=== PATIENT | male | born 1945 | race Two or more races ===

== ENCOUNTER 2020-12-05 21:52 | Inpatient (IN) | payer MEDICAID, OTHER ==
[~2020-12-05] VITALS: Ht 165.1 cm; Wt 83.5 kg
[2020-12-05] MEDS ORDERED: IPRATROPIUM BROMIDE (0.02%) 0.5MG/2.5ML NEB HHN STA (22:17)
[2020-12-05] MEDS ORDERED: DEXAMETHASONE 10 MG/ML VIAL IV ONE (22:30)
[2020-12-05 22:44] LABS: HEMATOCRIT. 42.7 % (42.0-52.0); HEMOGLOBIN. 13.9 g/dL (14.0-18.0); MEAN CORPUSCULAR HEMOGLOBIN 32.2 pg (28.0-32.0); MEAN CORPUSCULAR VOLUME 98.9 fL (80.0-94.0); MEAN PLATELET VOLUME 10.2 fl (7.4-10.4); PLATELET 193 x1000/uL (130-400); RED BLOOD CELL COUNT 4.32 mill/uL (4.7-6.1); RED CELL DISTRIBUTION WIDTH 13.9 % (11.6-14.6)
[2020-12-05 22:46] LABS: CHLORIDE 98 mEq/L (98-107)
[2020-12-05 22:53] LABS: INR 1.1; PROTHROMBIN TIME 11.1 sec (9.6-11.0)
[2020-12-05 22:54] LABS: CREATINE KINASE 785 IU/L (39-308)
[2020-12-05 22:56] LABS: FIBRINOGEN > 850 mg/dL (200-400)
[2020-12-05 23:02] LABS: PLATELET ESTIMATE NORMAL
[2020-12-05] MEDS: ALBUTEROL (0.083%) 2.5MG/3ML NEB HHN SCH (23:30)
[2020-12-05 23:33] LABS: BG BASE EXCESS -10.5 mmol/L (-2.0-2.0); BG CARBOXYHEMOGLOBIN 0.5 % (0.5-1.5); BG DEOXYHEMOGLOBIN 6.1 % (0.0-5.0); BG FRACTION INSPIRED OXYGEN 100; BG HCO3 ACT 13.6 mmol/L (22.0-26.0); BG METHEMOGLOBIN 0.3 % (0.0-1.5); BG OXYGEN SATURATION 93.9 % (92.0-98.5); BG OXYHEMOGLOBIN 93.1 % (94.0-97.0); BG PCO2 26.2 mmHg (35.0-45.0); BG PH 7.332 (7.350-7.450); BG PO2 79.2 mmHg (75.0-100.0); BG SAMPLE SITE RIGHT BRACHIAL; BG TOTAL HEMOGLOBIN 14.2 g/dL (12.0-18.0); BG VENT MODE MASK - BIPAP
[2020-12-05 23:47] LABS: CLARITY URINE CLEAR (CLEAR); COLOR URINE ORANGE (YELLOW); KETONES URINE 1+ (NEGATIVE); LEUKOCYTE ESTERASE URINE NEGATIVE (NEGATIVE); NITRITE URINE NEGATIVE (NEGATIVE); OCCULT BLOOD URINE 1+ (NEGATIVE); PROTEIN URINE 1+ (NEGATIVE); SPECIFIC GRAVITY URINE 1.028 (1.005-1.030); UROBILINOGEN URINE 0.2 E.U./dL (0.2-1.0)
[2020-12-06] MEDS ORDERED: PIPERACILLIN/TAZOBACTAM 3.375GM/50ML PREMIX IV ONE
[2020-12-06] MEDS ORDERED: INSULIN REGULAR (DRIP) 100 UNITS in SODIUM CHLORIDE 0.9% 99 ML IV SCH ×2 (00:45→01:00)
[2020-12-06] MEDS ORDERED: INSULIN REGULAR (HUMULIN R) 300UNITS/3ML VIAL IV NR (00:45)
[2020-12-06] MEDS ORDERED: PIPERACILLIN/TAZ 3.375G PREMIX 50 ML IV NR (00:45)
[2020-12-06] MEDS ORDERED: ENOXAPARIN 80MG/0.8ML SYR SUBCUT NR (00:45)
[2020-12-06] MEDS ORDERED: SODIUM CHLORIDE 0.9% 500 ML IV NR (00:45)
[2020-12-06] MEDS: ALBUTEROL (0.083%) 2.5MG/3ML NEB HHN SCH ×2 (01:00→01:34)
[2020-12-06] MEDS ORDERED: VANCOMYCIN 1 G PREMIX 200 ML IV NR (01:00)
[2020-12-06] MEDS ORDERED: LORAZEPAM 2MG/ML CPJ IV ONE ×2 (01:30→07:45)
[2020-12-06] MEDS: PANTOPRAZOLE SODIUM 40 MG/VIAL IV SCH ×2 (02:15→09:50)
[2020-12-06] MEDS ORDERED: ETOMIDATE 2MG/ML 10ML VIAL IV ONE ×2 (02:15→15:00)
[2020-12-06] MEDS ORDERED: VECURONIUM BROMIDE 10 MG/VIAL IV ONE ×2 (02:15→15:00)
[2020-12-06] MEDS ORDERED: PROPOFOL 10MG/ML 100ML 100 ML IV SCH (02:15)
[2020-12-06 03:20] LABS: BG BASE EXCESS -14.1 mmol/L (-2.0-2.0); BG CARBOXYHEMOGLOBIN 0.6 % (0.5-1.5); BG DEOXYHEMOGLOBIN 14.6 % (0.0-5.0); BG FRACTION INSPIRED OXYGEN 100; BG METHEMOGLOBIN 0.4 % (0.0-1.5); BG OXYGEN SATURATION 85.3 % (92.0-98.5); BG OXYHEMOGLOBIN 84.4 % (94.0-97.0); BG PCO2 53.5 mmHg (35.0-45.0); BG PH 7.093 (7.350-7.450); BG SAMPLE SITE RIGHT RADIAL; BG TOTAL HEMOGLOBIN 16.2 g/dL (12.0-18.0); BG VENT MODE VENT - AC
[2020-12-06] MEDS ORDERED: FENTANYL CITRATE/PF 50MCG/ML 2ML VIAL IV ONE (04:00)
[2020-12-06] MEDS ORDERED: SODIUM BICARBONATE 8.4% 1 MEQ/ML 50ML SYR IV NR (05:00)
[2020-12-06] MEDS ORDERED: NOREPINEPHRINE 8MG/250ML PMX 250 ML IV PRN (08:15)
[2020-12-06] MEDS ORDERED: MIDAZOLAM 100MG/100ML PMX 100 ML IV PRN (08:15)
[2020-12-06] MEDS ORDERED: ONDANSETRON HCL 4MG/2ML INJ IV PRN (08:30)
[2020-12-06] MEDS ORDERED: NOREPINEPHRINE 8 MG in DEXTROSE 5% WATER 250 ML IV PRN (08:30)
[2020-12-06] MEDS ORDERED: MIDAZOLAM HCL 100 MG in DEXT 5% WATER 100 ML IV PRN (08:30)
[2020-12-06] MEDS ORDERED: SODIUM BICARBONATE 4% (2.4MEQ) 5ML VIAL IV ONE (08:35)
[2020-12-06] MEDS ORDERED: LIDOCAINE HCL 1% 20ML VIAL (Pyxis) INJ ONE (08:36)
[2020-12-06] MEDS: AZITHROMYCIN 250 MG in DEXT 5% WATER 250 ML IV SCH (09:29)
[2020-12-06 09:36] LABS: BG BASE EXCESS -3.9 mmol/L (-2.0-2.0); BG CARBOXYHEMOGLOBIN 0.1 % (0.5-1.5); BG HCO3 ACT 21.1 mmol/L (22.0-26.0); BG METHEMOGLOBIN 0.1 % (0.0-1.5); BG OXYHEMOGLOBIN 89.8 % (94.0-97.0); BG PCO2 38.5 mmHg (35.0-45.0); BG PH 7.356 (7.350-7.450); BG PO2 59.5 mmHg (75.0-100.0); BG SAMPLE SITE LEFT RADIAL; BG TOTAL HEMOGLOBIN 15.6 g/dL (12.0-18.0); BG VENT MODE VENT - AC
[2020-12-06] MEDS: SODIUM CHLORIDE 0.9% 1,000 ML IV SCH ×2 (09:50→22:20)
[2020-12-06] MEDS: ENOXAPARIN 40MG/0.4ML SYR SUBCUT SCH (09:50)
[2020-12-06] MEDS: CEFTRIAXONE 1 G PREMIX 50 ML IV SCH (09:50)
[2020-12-06] MEDS ORDERED: INSULIN GLARGINE UD 100 UNITS/ML SYR SUBCUT SCH (10:00)
[2020-12-06] MEDS: BLOOD SUGAR DIAGNOSTIC STRIP TEST SCH ×4 (10:30→21:28)
[2020-12-06] MEDS: DEXAMETHASONE 6MG TABLET PO SCH (11:06)
[2020-12-06] MEDS: INSULIN LISPRO 100 UNITS/ML SUBCUT SCH ×3 (13:21→21:33)
[2020-12-06] MEDS ORDERED: INSULIN GLARGINE UD 100 UNITS/ML SYR SUBCUT NR (18:00)
[2020-12-06] MEDS: INSULIN GLARGINE UD 100 UNITS/ML SYR SUBCUT SCH (22:00)
[2020-12-07] VITALS (8 sets, daily range): BP systolic 132–152; BP diastolic 59–70
[2020-12-07 05:18] LABS: HEMATOCRIT. 39.1 % (42.0-52.0); HEMOGLOBIN. 13.1 g/dL (14.0-18.0); MEAN CORPUSCULAR HEMOGLOBIN 32.4 pg (28.0-32.0); MEAN CORPUSCULAR VOLUME 96.5 fL (80.0-94.0); MEAN PLATELET VOLUME 9.8 fl (7.4-10.4); PLATELET 234 x1000/uL (130-400); RED BLOOD CELL COUNT 4.05 mill/uL (4.7-6.1); RED CELL DISTRIBUTION WIDTH 13.6 % (11.6-14.6)
[2020-12-07] MEDS: BLOOD SUGAR DIAGNOSTIC STRIP TEST SCH ×5 (06:32→21:00)
[2020-12-07] MEDS: INSULIN LISPRO 100 UNITS/ML SUBCUT SCH ×5 (06:55→21:00)
[2020-12-07 07:58] LABS: BG BASE EXCESS -4.1 mmol/L (-2.0-2.0); BG CARBOXYHEMOGLOBIN 0.3 % (0.5-1.5); BG DEOXYHEMOGLOBIN 3.9 % (0.0-5.0); BG FRACTION INSPIRED OXYGEN 100; BG HCO3 ACT 19.8 mmol/L (22.0-26.0); BG METHEMOGLOBIN 0.1 % (0.0-1.5); BG OXYGEN SATURATION 96.1 % (92.0-98.5); BG OXYHEMOGLOBIN 95.7 % (94.0-97.0); BG PCO2 32.4 mmHg (35.0-45.0); BG PH 7.404 (7.350-7.450); BG PO2 85.5 mmHg (75.0-100.0); BG SAMPLE SITE RIGHT RADIAL; BG TOTAL HEMOGLOBIN 11.7 g/dL (12.0-18.0); BG VENT MODE VENT - AC
[2020-12-07] MEDS: PANTOPRAZOLE SODIUM 40 MG/VIAL IV SCH (08:51)
[2020-12-07] MEDS: CEFTRIAXONE 1 G PREMIX 50 ML IV SCH (08:51)
[2020-12-07] MEDS: ENOXAPARIN 40MG/0.4ML SYR SUBCUT SCH (08:52)
[2020-12-07] MEDS: DEXAMETHASONE 6MG TABLET PO SCH (09:19)
[2020-12-07] MEDS: AZITHROMYCIN 250 MG in DEXT 5% WATER 250 ML IV SCH (09:20)
[2020-12-07 10:34] LABS: PLATELET ESTIMATE NORMAL
[2020-12-07] MEDS: INSULIN GLARGINE UD 100 UNITS/ML SYR SUBCUT SCH (11:27)
[2020-12-07] MEDS: SODIUM CHLORIDE 0.9% 1,000 ML IV SCH (11:37)
[2020-12-07] MEDS ORDERED: VANCOMYCIN 1 G PREMIX 200 ML IV SCH (14:00)
[2020-12-07] MEDS ORDERED: IPRATROPIUM/ALBUTEROL 0.5-3(2.5)MG/3ML NEB HHN PRN (19:15)
[2020-12-07] MEDS: IPRATROPIUM/ALBUTEROL 0.5-3(2.5)MG/3ML NEB HHN SCH (21:09)
[2020-12-07] MEDS ORDERED: INSULIN GLARGINE UD 100 UNITS/ML SYR SUBCUT SCH (22:00)
[2020-12-08] VITALS (89 sets, daily range): BP systolic 95–162; BP diastolic 52–78
[2020-12-08] MEDS: SODIUM CHLORIDE 0.9% 1,000 ML IV SCH ×2 (01:32→14:13)
[2020-12-08] MEDS: FENTANYL CITRATE/PF 2,500 MCG in SODIUM CHLORIDE 0.9% 200 ML IV PRN ×2 (01:35→21:24)
[2020-12-08] MEDS: IPRATROPIUM/ALBUTEROL 0.5-3(2.5)MG/3ML NEB HHN SCH ×5 (02:30→20:52)
[2020-12-08 06:31] LABS: HEMATOCRIT. 35.7 % (42.0-52.0); HEMOGLOBIN. 11.8 g/dL (14.0-18.0); MEAN CORPUSCULAR HEMOGLOBIN 32.5 pg (28.0-32.0); MEAN CORPUSCULAR VOLUME 98.4 fL (80.0-94.0); MEAN PLATELET VOLUME 10.4 fl (7.4-10.4); PLATELET 146 x1000/uL (130-400); RED BLOOD CELL COUNT 3.62 mill/uL (4.7-6.1)
[2020-12-08 07:03] LABS: BG BASE EXCESS -9.1 mmol/L (-2.0-2.0); BG CARBOXYHEMOGLOBIN 0.3 % (0.5-1.5); BG DEOXYHEMOGLOBIN 1.4 % (0.0-5.0); BG FRACTION INSPIRED OXYGEN 90; BG HCO3 ACT 16.2 mmol/L (22.0-26.0); BG METHEMOGLOBIN 0.3 % (0.0-1.5); BG OXYGEN SATURATION 98.6 % (92.0-98.5); BG PCO2 33.1 mmHg (35.0-45.0); BG PH 7.307 (7.350-7.450); BG PO2 144.3 mmHg (75.0-100.0); BG SAMPLE SITE RIGHT RADIAL; BG TOTAL HEMOGLOBIN 12.3 g/dL (12.0-18.0); BG VENT MODE VENT - AC
[2020-12-08] MEDS: CEFTRIAXONE 1,000 MG in DEXTROSE 5% WATER 50 ML IV SCH (09:28)
[2020-12-08] MEDS: ENOXAPARIN 40MG/0.4ML SYR SUBCUT SCH (09:29)
[2020-12-08] MEDS: DEXAMETHASONE 10 MG/ML VIAL IV SCH (09:29)
[2020-12-08] MEDS: AZITHROMYCIN 250 MG in DEXT 5% WATER 250 ML IV SCH (11:04)
[2020-12-08] MEDS: INSULIN GLARGINE UD 100 UNITS/ML SYR SUBCUT SCH ×2 (11:09→21:25)
[2020-12-08] MEDS: INSULIN LISPRO 100 UNITS/ML SUBCUT SCH ×5 (11:43→23:30)
[2020-12-08] MEDS: VANCOMYCIN 750 MG PREMIX 150 ML IV SCH (11:44)
[2020-12-08] MEDS ORDERED: INSULIN LISPRO 100 UNITS/ML SUBCUT NR (12:00)
[2020-12-08] MEDS: BLOOD SUGAR DIAGNOSTIC STRIP TEST SCH ×3 (12:00→23:19)
[2020-12-08 15:45] LABS: PLATELET ESTIMATE NORMAL
[2020-12-08] MEDS: MIDAZOLAM 100MG/100ML PREMIX IV PRN (17:22)
[2020-12-09] VITALS (88 sets, daily range): BP systolic 97–170; BP diastolic 59–102
[2020-12-09] MEDS: IPRATROPIUM/ALBUTEROL 0.5-3(2.5)MG/3ML NEB HHN SCH ×5 (00:21→20:20)
[2020-12-09] MEDS: VANCOMYCIN 750 MG PREMIX 150 ML IV SCH ×2 (04:00→22:07)
[2020-12-09] MEDS: SODIUM CHLORIDE 0.9% 1,000 ML IV SCH ×2 (04:01→17:29)
[2020-12-09] MEDS: BLOOD SUGAR DIAGNOSTIC STRIP TEST SCH ×4 (05:21→23:29)
[2020-12-09] MEDS: MIDAZOLAM 100MG/100ML PREMIX IV PRN ×2 (05:44→17:30)
[2020-12-09] MEDS: INSULIN LISPRO 100 UNITS/ML SUBCUT SCH ×8 (06:03→23:29)
[2020-12-09 06:20] LABS: HEMATOCRIT. 33.6 % (42.0-52.0); HEMOGLOBIN. 11.2 g/dL (14.0-18.0); MEAN CORPUSCULAR HEMOGLOBIN 32.2 pg (28.0-32.0); MEAN CORPUSCULAR VOLUME 96.9 fL (80.0-94.0); MEAN PLATELET VOLUME 10.3 fl (7.4-10.4); PLATELET 128 x1000/uL (130-400); RED BLOOD CELL COUNT 3.47 mill/uL (4.7-6.1); RED CELL DISTRIBUTION WIDTH 13.8 % (11.6-14.6)
[2020-12-09] MEDS ORDERED: INSULIN LISPRO 100 UNITS/ML SUBCUT NR (08:00)
[2020-12-09] MEDS: DEXAMETHASONE 10 MG/ML VIAL IV SCH (08:27)
[2020-12-09] MEDS: CEFTRIAXONE 1,000 MG in DEXTROSE 5% WATER 50 ML IV SCH (08:28)
[2020-12-09 08:37] LABS: BG BASE EXCESS -8.2 mmol/L (-2.0-2.0); BG DEOXYHEMOGLOBIN 2.6 % (0.0-5.0); BG FRACTION INSPIRED OXYGEN 70; BG HCO3 ACT 17.1 mmol/L (22.0-26.0); BG METHEMOGLOBIN 0.3 % (0.0-1.5); BG OXYGEN SATURATION 97.4 % (92.0-98.5); BG OXYHEMOGLOBIN 97.1 % (94.0-97.0); BG PCO2 34.4 mmHg (35.0-45.0); BG PH 7.314 (7.350-7.450); BG PO2 101.9 mmHg (75.0-100.0); BG SAMPLE SITE RIGHT RADIAL; BG VENT MODE VENT - AC
[2020-12-09] MEDS: ENOXAPARIN 40MG/0.4ML SYR SUBCUT SCH (08:38)
[2020-12-09 09:22] LABS: PLATELET ESTIMATE SLIGHTLY DECREASED
[2020-12-09] MEDS: INSULIN GLARGINE UD 100 UNITS/ML SYR SUBCUT SCH ×2 (10:03→22:00)
[2020-12-09] MEDS: METOCLOPRAMIDE HCL 10MG/2ML VIAL IV SCH ×3 (11:30→23:26)
[2020-12-09] MEDS: AZITHROMYCIN 250 MG in DEXT 5% WATER 250 ML IV SCH (11:30)
[2020-12-09] MEDS: LACTULOSE 20G/30ML UDC PO PRN (11:30)
[2020-12-09] MEDS ORDERED: PHENYLEPHRINE 100 MG in DEXT 5% WATER 240 ML IV PRN (13:30)
[2020-12-09] MEDS: FENTANYL CITRATE/PF 2,500 MCG in SODIUM CHLORIDE 0.9% 200 ML IV PRN (15:24)
[2020-12-09] MEDS: DOCUSATE SODIUM SUGAR FREE 100MG/10ML UDC NG SCH (17:29)
[2020-12-10] VITALS (86 sets, daily range): BP systolic 110–157; BP diastolic 55–86
[2020-12-10] MEDS: IPRATROPIUM/ALBUTEROL 0.5-3(2.5)MG/3ML NEB HHN SCH ×5 (02:09→20:45)
[2020-12-10] MEDS: SODIUM CHLORIDE 0.9% 1,000 ML IV SCH (04:35)
[2020-12-10] MEDS: INSULIN LISPRO 100 UNITS/ML SUBCUT SCH ×4 (05:10→18:06)
[2020-12-10] MEDS: METOCLOPRAMIDE HCL 10MG/2ML VIAL IV SCH ×3 (05:10→18:06)
[2020-12-10] MEDS: BLOOD SUGAR DIAGNOSTIC STRIP TEST SCH ×3 (05:10→18:03)
[2020-12-10 05:49] LABS: HEMOGLOBIN. 11.4 g/dL (14.0-18.0); MEAN CORPUSCULAR HEMOGLOBIN 32.6 pg (28.0-32.0); MEAN CORPUSCULAR VOLUME 97.1 fL (80.0-94.0); MEAN PLATELET VOLUME 10.7 fl (7.4-10.4); PLATELET 114 x1000/uL (130-400); RED CELL DISTRIBUTION WIDTH 13.8 % (11.6-14.6)
[2020-12-10 05:57] LABS: CHLORIDE 123 mEq/L (98-107)
[2020-12-10] MEDS ORDERED: MIDAZOLAM HCL 100 MG in SODIUM CHLORIDE 0.9% 100 ML IV PRN (06:00)
[2020-12-10] MEDS: FENTANYL CITRATE/PF 2,500 MCG in SODIUM CHLORIDE 0.9% 200 ML IV PRN ×2 (07:05→22:46)
[2020-12-10 07:44] LABS: PLATELET ESTIMATE DECREASED
[2020-12-10] MEDS: DEXAMETHASONE 10 MG/ML VIAL IV SCH (08:26)
[2020-12-10] MEDS: ENOXAPARIN 40MG/0.4ML SYR SUBCUT SCH (08:26)
[2020-12-10] MEDS: DOCUSATE SODIUM SUGAR FREE 100MG/10ML UDC NG SCH ×2 (08:26→18:06)
[2020-12-10 08:40] LABS: BG BASE EXCESS -5.6 mmol/L (-2.0-2.0); BG CARBOXYHEMOGLOBIN 0.2 % (0.5-1.5); BG DEOXYHEMOGLOBIN 0.8 % (0.0-5.0); BG FRACTION INSPIRED OXYGEN 90; BG HCO3 ACT 19.4 mmol/L (22.0-26.0); BG METHEMOGLOBIN 0.5 % (0.0-1.5); BG OXYGEN SATURATION 99.2 % (92.0-98.5); BG OXYHEMOGLOBIN 98.5 % (94.0-97.0); BG PCO2 36.2 mmHg (35.0-45.0); BG PH 7.347 (7.350-7.450); BG PO2 293.3 mmHg (75.0-100.0); BG SAMPLE SITE RIGHT RADIAL; BG TOTAL HEMOGLOBIN 12.5 g/dL (12.0-18.0); BG VENT MODE VENT - AC
[2020-12-10] MEDS: AZITHROMYCIN 250 MG in DEXT 5% WATER 250 ML IV SCH (08:59)
[2020-12-10] MEDS ORDERED: CEFTRIAXONE 2 G PREMIX 50 ML IV SCH (09:00)
[2020-12-10] MEDS: CEFTRIAXONE 2 G in DEXTROSE 5% WATER 50 ML IV SCH (09:53)
[2020-12-10] MEDS: INSULIN GLARGINE UD 100 UNITS/ML SYR SUBCUT SCH ×2 (10:34→22:52)
[2020-12-11] VITALS (95 sets, daily range): BP systolic 120–183; BP diastolic 57–100
[2020-12-11] MEDS: INSULIN LISPRO 100 UNITS/ML SUBCUT SCH ×4 (01:55→17:34)
[2020-12-11] MEDS: IPRATROPIUM/ALBUTEROL 0.5-3(2.5)MG/3ML NEB HHN SCH ×5 (02:21→21:15)
[2020-12-11] MEDS: BLOOD SUGAR DIAGNOSTIC STRIP TEST SCH ×4 (06:00→18:03)
[2020-12-11] MEDS: METOCLOPRAMIDE HCL 10MG/2ML VIAL IV SCH ×4 (06:00→17:34)
[2020-12-11 06:25] LABS: CHLORIDE 124 mEq/L (98-107)
[2020-12-11 06:28] LABS: HEMATOCRIT. 34.2 % (42.0-52.0); HEMOGLOBIN. 11.4 g/dL (14.0-18.0); MEAN CORPUSCULAR HEMOGLOBIN 32.3 pg (28.0-32.0); MEAN CORPUSCULAR VOLUME 96.8 fL (80.0-94.0); MEAN PLATELET VOLUME 11.1 fl (7.4-10.4); PLATELET 135 x1000/uL (130-400); RED BLOOD CELL COUNT 3.53 mill/uL (4.7-6.1); RED CELL DISTRIBUTION WIDTH 14.1 % (11.6-14.6)
[2020-12-11 07:36] LABS: BG BASE EXCESS -1.8 mmol/L (-2.0-2.0); BG CARBOXYHEMOGLOBIN 0.3 % (0.5-1.5); BG DEOXYHEMOGLOBIN 1.1 % (0.0-5.0); BG FRACTION INSPIRED OXYGEN 70; BG HCO3 ACT 22.4 mmol/L (22.0-26.0); BG METHEMOGLOBIN 0.5 % (0.0-1.5); BG OXYGEN SATURATION 98.9 % (92.0-98.5); BG OXYHEMOGLOBIN 98.1 % (94.0-97.0); BG PH 7.411 (7.350-7.450); BG PO2 262.4 mmHg (75.0-100.0); BG SAMPLE SITE RIGHT RADIAL; BG TOTAL HEMOGLOBIN 11.1 g/dL (12.0-18.0); BG VENT MODE VENT - AC
[2020-12-11] MEDS: MIDAZOLAM 100MG/100ML PREMIX IV PRN ×2 (08:08→21:45)
[2020-12-11] MEDS: DOCUSATE SODIUM SUGAR FREE 100MG/10ML UDC NG SCH ×2 (08:37→17:33)
[2020-12-11] MEDS: DEXAMETHASONE 10 MG/ML VIAL IV SCH (08:37)
[2020-12-11] MEDS: CEFTRIAXONE 2 G in DEXTROSE 5% WATER 50 ML IV SCH (08:37)
[2020-12-11] MEDS: ENOXAPARIN 40MG/0.4ML SYR SUBCUT SCH (08:37)
[2020-12-11] MEDS: INSULIN GLARGINE UD 100 UNITS/ML SYR SUBCUT SCH ×2 (10:16→21:27)
[2020-12-11] MEDS: FENTANYL CITRATE/PF 2,500 MCG in SODIUM CHLORIDE 0.9% 200 ML IV PRN (15:30)
[2020-12-12] VITALS (86 sets, daily range): BP systolic 112–154; BP diastolic 58–82
[2020-12-12 00:06] LABS: PLATELET ESTIMATE NORMAL
[2020-12-12] MEDS: BLOOD SUGAR DIAGNOSTIC STRIP TEST SCH ×4 (00:08→18:00)
[2020-12-12] MEDS: INSULIN LISPRO 100 UNITS/ML SUBCUT SCH ×4 (00:22→18:00)
[2020-12-12] MEDS: METOCLOPRAMIDE HCL 10MG/2ML VIAL IV SCH ×4 (00:23→17:59)
[2020-12-12] MEDS: IPRATROPIUM/ALBUTEROL 0.5-3(2.5)MG/3ML NEB HHN SCH ×4 (03:11→20:05)
[2020-12-12] MEDS: FENTANYL CITRATE/PF 2,500 MCG in SODIUM CHLORIDE 0.9% 200 ML IV PRN ×3 (04:14→23:09)
[2020-12-12 06:41] LABS: CHLORIDE 125 mEq/L (98-107)
[2020-12-12 06:57] LABS: HEMATOCRIT. 35.1 % (42.0-52.0); HEMOGLOBIN. 11.6 g/dL (14.0-18.0); MEAN CORPUSCULAR HEMOGLOBIN 32.2 pg (28.0-32.0); MEAN CORPUSCULAR VOLUME 97.3 fL (80.0-94.0); RED CELL DISTRIBUTION WIDTH 14.1 % (11.6-14.6)
[2020-12-12] MEDS: MIDAZOLAM 100MG/100ML PREMIX IV PRN ×2 (07:09→16:52)
[2020-12-12] MEDS: ENOXAPARIN 40MG/0.4ML SYR SUBCUT SCH (09:00)
[2020-12-12] MEDS: DOCUSATE SODIUM SUGAR FREE 100MG/10ML UDC NG SCH ×2 (09:25→17:59)
[2020-12-12] MEDS: DEXAMETHASONE 10 MG/ML VIAL IV SCH (09:25)
[2020-12-12] MEDS: CEFTRIAXONE 2 G in DEXTROSE 5% WATER 50 ML IV SCH (09:25)
[2020-12-12 09:34] LABS: PLATELET ESTIMATE NORMAL
[2020-12-12 09:37] LABS: PLATELET 179 x1000/uL (130-400)
[2020-12-12 09:46] LABS: BG BASE EXCESS -0.5 mmol/L (-2.0-2.0); BG CARBOXYHEMOGLOBIN 0.8 % (0.5-1.5); BG DEOXYHEMOGLOBIN 5.4 % (0.0-5.0); BG FRACTION INSPIRED OXYGEN 50; BG HCO3 ACT 24.2 mmol/L (22.0-26.0); BG METHEMOGLOBIN 0.4 % (0.0-1.5); BG OXYGEN SATURATION 94.5 % (92.0-98.5); BG OXYHEMOGLOBIN 93.4 % (94.0-97.0); BG PCO2 40.1 mmHg (35.0-45.0); BG PH 7.399 (7.350-7.450); BG PO2 71.4 mmHg (75.0-100.0); BG SAMPLE SITE RIGHT RADIAL; BG TOTAL HEMOGLOBIN 12.7 g/dL (12.0-18.0); BG VENT MODE VENT - AC
[2020-12-12] MEDS ORDERED: INSULIN GLARGINE UD 100 UNITS/ML SYR SUBCUT SCH (10:00)
[2020-12-12] MEDS: DEXTROSE 50% WATER 50ML SYRINGE IV PRN (11:49)
[2020-12-12] MEDS: DEXTROSE 5% WATER 1,000 ML IV SCH (12:06)
[2020-12-12] MEDS: INSULIN GLARGINE UD 100 UNITS/ML SYR SUBCUT SCH (21:05)
[2020-12-13] VITALS (72 sets, daily range): BP systolic 91–198; BP diastolic 49–98
[2020-12-13] MEDS: BLOOD SUGAR DIAGNOSTIC STRIP TEST SCH ×5 (00:25→23:14)
[2020-12-13] MEDS: METOCLOPRAMIDE HCL 10MG/2ML VIAL IV SCH ×5 (00:36→23:20)
[2020-12-13] MEDS: IPRATROPIUM/ALBUTEROL 0.5-3(2.5)MG/3ML NEB HHN SCH ×5 (02:33→20:35)
[2020-12-13] MEDS: MIDAZOLAM 100MG/100ML PREMIX IV PRN (03:44)
[2020-12-13 05:47] LABS: MEAN CORPUSCULAR HEMOGLOBIN 32.4 pg (28.0-32.0); MEAN CORPUSCULAR VOLUME 97.7 fL (80.0-94.0); MEAN PLATELET VOLUME 10.3 fl (7.4-10.4); PLATELET 191 x1000/uL (130-400); RED BLOOD CELL COUNT 3.38 mill/uL (4.7-6.1); RED CELL DISTRIBUTION WIDTH 14.1 % (11.6-14.6)
[2020-12-13 05:53] LABS: CHLORIDE 122 mEq/L (98-107)
[2020-12-13] MEDS: INSULIN LISPRO 100 UNITS/ML SUBCUT SCH ×5 (06:00→23:17)
[2020-12-13] MEDS: DEXTROSE 5% WATER 1,000 ML IV SCH (08:17)
[2020-12-13] MEDS: FENTANYL CITRATE/PF 2,500 MCG in SODIUM CHLORIDE 0.9% 200 ML IV PRN ×3 (08:21→23:13)
[2020-12-13] MEDS: DEXAMETHASONE 10 MG/ML VIAL IV SCH (08:22)
[2020-12-13] MEDS: ENOXAPARIN 40MG/0.4ML SYR SUBCUT SCH (08:24)
[2020-12-13] MEDS: CEFTRIAXONE 2 G in DEXTROSE 5% WATER 50 ML IV SCH (08:25)
[2020-12-13] MEDS: DOCUSATE SODIUM SUGAR FREE 100MG/10ML UDC NG SCH ×2 (08:25→17:00)
[2020-12-13 10:40] LABS: BG BASE EXCESS -1.5 mmol/L (-2.0-2.0); BG CARBOXYHEMOGLOBIN 0.3 % (0.5-1.5); BG DEOXYHEMOGLOBIN 6.5 % (0.0-5.0); BG FRACTION INSPIRED OXYGEN 50; BG HCO3 ACT 23.1 mmol/L (22.0-26.0); BG METHEMOGLOBIN 0.1 % (0.0-1.5); BG OXYGEN SATURATION 93.5 % (92.0-98.5); BG OXYHEMOGLOBIN 93.1 % (94.0-97.0); BG PCO2 38.9 mmHg (35.0-45.0); BG PH 7.392 (7.350-7.450); BG PO2 68.3 mmHg (75.0-100.0); BG SAMPLE SITE LEFT RADIAL; BG TOTAL HEMOGLOBIN 15.6 g/dL (12.0-18.0); BG VENT MODE VENT - AC
[2020-12-13] MEDS: INSULIN GLARGINE UD 100 UNITS/ML SYR SUBCUT SCH ×2 (10:46→22:00)
[2020-12-13 13:40] LABS: PLATELET ESTIMATE NORMAL
[2020-12-13] MEDS: MIDAZOLAM 100MG/100ML PMX 100 ML IV PRN ×2 (13:41→23:27)
[2020-12-13] MEDS: ACETAMINOPHEN 325MG TABLET PO PRN (16:14)
[2020-12-14] VITALS (69 sets, daily range): BP systolic 92–133; BP diastolic 45–71
[2020-12-14 01:22] LABS: BG BASE EXCESS -2.4 mmol/L (-2.0-2.0); BG CARBOXYHEMOGLOBIN 0.2 % (0.5-1.5); BG DEOXYHEMOGLOBIN 23.7 % (0.0-5.0); BG FRACTION INSPIRED OXYGEN 100; BG HCO3 ACT 23.5 mmol/L (22.0-26.0); BG METHEMOGLOBIN 0.2 % (0.0-1.5); BG OXYGEN SATURATION 76.2 % (92.0-98.5); BG OXYHEMOGLOBIN 75.9 % (94.0-97.0); BG PCO2 45.1 mmHg (35.0-45.0); BG PH 7.335 (7.350-7.450); BG PO2 43.1 mmHg (75.0-100.0); BG SAMPLE SITE RIGHT BRACHIAL; BG TOTAL HEMOGLOBIN 12.2 g/dL (12.0-18.0); BG VENT MODE VENT - AC
[2020-12-14] MEDS: PROPOFOL 10MG/ML 100ML 100 ML IV PRN ×2 (01:59→20:46)
[2020-12-14] MEDS: ACETAMINOPHEN 325MG TABLET PO PRN (02:00)
[2020-12-14] MEDS: IPRATROPIUM/ALBUTEROL 0.5-3(2.5)MG/3ML NEB HHN SCH ×4 (02:30→20:02)
[2020-12-14] MEDS: DEXTROSE 5% WATER 1,000 ML IV SCH ×2 (03:30→22:56)
[2020-12-14] MEDS: METOCLOPRAMIDE HCL 10MG/2ML VIAL IV SCH ×4 (05:11→23:49)
[2020-12-14] MEDS: BLOOD SUGAR DIAGNOSTIC STRIP TEST SCH ×4 (05:11→23:49)
[2020-12-14] MEDS: DEXTROSE 50% WATER 50ML SYRINGE IV PRN (05:11)
[2020-12-14] MEDS: INSULIN LISPRO 100 UNITS/ML SUBCUT SCH ×4 (05:11→23:49)
[2020-12-14 05:54] LABS: HEMATOCRIT. 32.7 % (42.0-52.0); HEMOGLOBIN. 10.8 g/dL (14.0-18.0); MEAN CORPUSCULAR HEMOGLOBIN 32.2 pg (28.0-32.0); MEAN CORPUSCULAR VOLUME 97.3 fL (80.0-94.0); MEAN PLATELET VOLUME 10.4 fl (7.4-10.4); PLATELET 235 x1000/uL (130-400); RED BLOOD CELL COUNT 3.36 mill/uL (4.7-6.1)
[2020-12-14 07:43] LABS: BG BASE EXCESS -2.3 mmol/L (-2.0-2.0); BG CARBOXYHEMOGLOBIN 0.3 % (0.5-1.5); BG DEOXYHEMOGLOBIN 2.2 % (0.0-5.0); BG FRACTION INSPIRED OXYGEN 100; BG HCO3 ACT 21.9 mmol/L (22.0-26.0); BG METHEMOGLOBIN 0.5 % (0.0-1.5); BG OXYGEN SATURATION 97.8 % (92.0-98.5); BG PCO2 35.9 mmHg (35.0-45.0); BG PH 7.403 (7.350-7.450); BG PO2 113.1 mmHg (75.0-100.0); BG SAMPLE SITE RIGHT RADIAL; BG VENT MODE VENT - AC
[2020-12-14] MEDS: MIDAZOLAM 100MG/100ML PMX 100 ML IV PRN ×2 (09:06→17:33)
[2020-12-14] MEDS: FENTANYL CITRATE/PF 2,500 MCG in SODIUM CHLORIDE 0.9% 200 ML IV PRN ×2 (09:07→17:28)
[2020-12-14] MEDS: CEFTRIAXONE 2 G in DEXTROSE 5% WATER 50 ML IV SCH (09:23)
[2020-12-14] MEDS: DOCUSATE SODIUM SUGAR FREE 100MG/10ML UDC NG SCH ×2 (09:23→17:25)
[2020-12-14] MEDS: DEXAMETHASONE 10 MG/ML VIAL IV SCH (09:23)
[2020-12-14] MEDS: ENOXAPARIN 40MG/0.4ML SYR SUBCUT SCH (09:25)
[2020-12-14] MEDS: INSULIN GLARGINE UD 100 UNITS/ML SYR SUBCUT SCH ×2 (10:00→19:25)
[2020-12-14 11:17] LABS: PLATELET ESTIMATE NORMAL
[2020-12-15] VITALS (89 sets, daily range): BP systolic 90–149; BP diastolic 43–74
[2020-12-15] MEDS: IPRATROPIUM/ALBUTEROL 0.5-3(2.5)MG/3ML NEB HHN SCH ×5 (02:31→22:34)
[2020-12-15] MEDS: MIDAZOLAM 100MG/100ML PMX 100 ML IV PRN ×2 (02:39→12:34)
[2020-12-15] MEDS ORDERED: PROPOFOL 10MG/ML 100ML 100 ML IV PRN ×4 (02:45→14:45)
[2020-12-15] MEDS: BLOOD SUGAR DIAGNOSTIC STRIP TEST SCH ×4 (05:24→23:08)
[2020-12-15] MEDS: INSULIN LISPRO 100 UNITS/ML SUBCUT SCH ×4 (05:25→23:08)
[2020-12-15] MEDS: METOCLOPRAMIDE HCL 10MG/2ML VIAL IV SCH ×4 (05:26→23:05)
[2020-12-15 06:04] LABS: CHLORIDE 115 mEq/L (98-107)
[2020-12-15 06:06] LABS: HEMOGLOBIN. 9.5 g/dL (14.0-18.0); MEAN CORPUSCULAR HEMOGLOBIN 32.4 pg (28.0-32.0); MEAN CORPUSCULAR VOLUME 98.8 fL (80.0-94.0); MEAN PLATELET VOLUME 11.2 fl (7.4-10.4); PLATELET 210 x1000/uL (130-400); RED BLOOD CELL COUNT 2.94 mill/uL (4.7-6.1); RED CELL DISTRIBUTION WIDTH 13.7 % (11.6-14.6)
[2020-12-15] MEDS: DOCUSATE SODIUM SUGAR FREE 100MG/10ML UDC NG SCH ×2 (08:26→16:56)
[2020-12-15] MEDS: DEXAMETHASONE 10 MG/ML VIAL IV SCH (08:26)
[2020-12-15] MEDS: CEFTRIAXONE 2 G in DEXTROSE 5% WATER 50 ML IV SCH (08:26)
[2020-12-15] MEDS: ENOXAPARIN 40MG/0.4ML SYR SUBCUT SCH (08:26)
[2020-12-15] MEDS: FENTANYL CITRATE/PF 2,500 MCG in SODIUM CHLORIDE 0.9% 200 ML IV PRN ×2 (09:07→21:44)
[2020-12-15 09:49] LABS: CHLORIDE 115 mEq/L (98-107)
[2020-12-15] MEDS ORDERED: SODIUM POLYSTYRENE SULFONATE 15 G/60 ML BOT PO NR (11:00)
[2020-12-15 11:34] LABS: PLATELET ESTIMATE NORMAL
[2020-12-15] MEDS: BISACODYL 10MG SUPP PR PRN (18:13)
[2020-12-15] MEDS: DEXTROSE 5% WATER 1,000 ML IV SCH (19:16)
[2020-12-15] MEDS ORDERED: MIDAZOLAM 100MG/100ML PMX 100 ML IV PRN (23:00)
[2020-12-15] MEDS: MIDAZOLAM HCL 100 MG in SODIUM CHLORIDE 0.9% 80 ML IV PRN (23:09)
[2020-12-16] VITALS (73 sets, daily range): BP systolic 110–174; BP diastolic 53–88
[2020-12-16] MEDS: IPRATROPIUM/ALBUTEROL 0.5-3(2.5)MG/3ML NEB HHN SCH ×5 (03:28→20:22)
[2020-12-16 05:36] LABS: HEMATOCRIT. 32.8 % (42.0-52.0); HEMOGLOBIN. 10.6 g/dL (14.0-18.0); MEAN CORPUSCULAR HEMOGLOBIN 31.7 pg (28.0-32.0); MEAN CORPUSCULAR VOLUME 98.2 fL (80.0-94.0); MEAN PLATELET VOLUME 11.1 fl (7.4-10.4); PLATELET 256 x1000/uL (130-400); RED BLOOD CELL COUNT 3.34 mill/uL (4.7-6.1); RED CELL DISTRIBUTION WIDTH 13.2 % (11.6-14.6)
[2020-12-16 05:44] LABS: CHLORIDE 112 mEq/L (98-107)
[2020-12-16] MEDS: INSULIN LISPRO 100 UNITS/ML SUBCUT SCH ×4 (05:56→23:05)
[2020-12-16] MEDS: METOCLOPRAMIDE HCL 10MG/2ML VIAL IV SCH ×4 (05:57→23:05)
[2020-12-16] MEDS: BLOOD SUGAR DIAGNOSTIC STRIP TEST SCH ×4 (05:57→23:05)
[2020-12-16] MEDS: CEFTRIAXONE 2 G in DEXTROSE 5% WATER 50 ML IV SCH (08:34)
[2020-12-16] MEDS: DOCUSATE SODIUM SUGAR FREE 100MG/10ML UDC NG SCH ×2 (09:00→17:00)
[2020-12-16] MEDS: AMLODIPINE 10MG TABLET PO SCH (10:01)
[2020-12-16] MEDS: DEXAMETHASONE 10 MG/ML VIAL IV SCH (10:02)
[2020-12-16] MEDS: ENOXAPARIN 40MG/0.4ML SYR SUBCUT SCH (10:02)
[2020-12-16] MEDS: FENTANYL CITRATE/PF 2,500 MCG in SODIUM CHLORIDE 0.9% 200 ML IV PRN ×2 (11:15→17:11)
[2020-12-16] MEDS: MIDAZOLAM HCL 100 MG in SODIUM CHLORIDE 0.9% 80 ML IV PRN ×2 (11:16→17:12)
[2020-12-16 16:56] LABS: PLATELET ESTIMATE NORMAL
[2020-12-16] MEDS: DEXTROSE 50% WATER 50ML SYRINGE IV PRN (23:06)
[2020-12-17] VITALS (73 sets, daily range): BP systolic 98–129; BP diastolic 43–70
[2020-12-17] MEDS: FENTANYL CITRATE/PF 2,500 MCG in SODIUM CHLORIDE 0.9% 200 ML IV PRN ×3 (00:30→19:25)
[2020-12-17] MEDS: DEXTROSE 50% WATER 50ML SYRINGE IV PRN ×2 (00:34→06:07)
[2020-12-17] MEDS: IPRATROPIUM/ALBUTEROL 0.5-3(2.5)MG/3ML NEB HHN SCH ×5 (02:44→20:06)
[2020-12-17] MEDS: MIDAZOLAM 100MG/100ML PMX 100 ML IV PRN ×2 (04:53→20:08)
[2020-12-17 05:47] LABS: CHLORIDE 118 mEq/L (98-107)
[2020-12-17 05:53] LABS: HEMATOCRIT. 32.1 % (42.0-52.0); HEMOGLOBIN. 10.5 g/dL (14.0-18.0); MEAN CORPUSCULAR HEMOGLOBIN 31.7 pg (28.0-32.0); MEAN CORPUSCULAR VOLUME 97.4 fL (80.0-94.0); MEAN PLATELET VOLUME 10.6 fl (7.4-10.4); PLATELET 223 x1000/uL (130-400); RED CELL DISTRIBUTION WIDTH 13.3 % (11.6-14.6)
[2020-12-17] MEDS: INSULIN LISPRO 100 UNITS/ML SUBCUT SCH ×3 (06:00→16:31)
[2020-12-17] MEDS: BLOOD SUGAR DIAGNOSTIC STRIP TEST SCH ×3 (06:07→16:31)
[2020-12-17] MEDS: METOCLOPRAMIDE HCL 10MG/2ML VIAL IV SCH ×4 (06:09→23:06)
[2020-12-17] MEDS: DEXTROSE 5% WATER 1,000 ML IV SCH (06:24)
[2020-12-17 07:31] LABS: BG FRACTION INSPIRED OXYGEN 100; BG HCO3 ACT 25.2 mmol/L (22.0-26.0); BG PCO2 35.7 mmHg (35.0-45.0); BG PH 7.466 (7.350-7.450); BG PO2 201.9 mmHg (75.0-100.0); BG SAMPLE SITE RIGHT RADIAL; BG TOTAL HEMOGLOBIN < 4.5 g/dL (12.0-18.0); BG VENT MODE VENT - AC
[2020-12-17] MEDS: CEFTRIAXONE 2 G in DEXTROSE 5% WATER 50 ML IV SCH (08:48)
[2020-12-17] MEDS: AMLODIPINE 10MG TABLET PO SCH (09:00)
[2020-12-17] MEDS: DOCUSATE SODIUM SUGAR FREE 100MG/10ML UDC NG SCH ×2 (10:43→16:47)
[2020-12-17] MEDS: DEXAMETHASONE 10 MG/ML VIAL IV SCH (10:44)
[2020-12-17] MEDS: ENOXAPARIN 40MG/0.4ML SYR SUBCUT SCH (10:44)
[2020-12-17 14:30] LABS: PLATELET ESTIMATE NORMAL
[2020-12-18] VITALS (88 sets, daily range): BP systolic 94–128; BP diastolic 49–72
[2020-12-18] MEDS: INSULIN LISPRO 100 UNITS/ML SUBCUT SCH ×4 (00:02→19:03)
[2020-12-18] MEDS: IPRATROPIUM/ALBUTEROL 0.5-3(2.5)MG/3ML NEB HHN SCH ×6 (00:08→20:45)
[2020-12-18] MEDS: FENTANYL CITRATE/PF 2,500 MCG in SODIUM CHLORIDE 0.9% 200 ML IV PRN ×3 (03:04→18:30)
[2020-12-18 05:13] LABS: CHLORIDE 117 mEq/L (98-107)
[2020-12-18 05:21] LABS: HEMATOCRIT. 30.4 % (42.0-52.0); HEMOGLOBIN. 9.9 g/dL (14.0-18.0); MEAN CORPUSCULAR HEMOGLOBIN 31.9 pg (28.0-32.0); MEAN CORPUSCULAR VOLUME 98.1 fL (80.0-94.0); MEAN PLATELET VOLUME 10.5 fl (7.4-10.4); PLATELET 210 x1000/uL (130-400); RED CELL DISTRIBUTION WIDTH 13.7 % (11.6-14.6)
[2020-12-18] MEDS: BLOOD SUGAR DIAGNOSTIC STRIP TEST SCH ×4 (06:00→18:00)
[2020-12-18] MEDS: METOCLOPRAMIDE HCL 10MG/2ML VIAL IV SCH ×3 (06:04→18:00)
[2020-12-18] MEDS: MIDAZOLAM 100MG/100ML PMX 100 ML IV PRN ×2 (06:25→18:30)
[2020-12-18] MEDS: DEXTROSE 5% WATER 1,000 ML IV SCH (07:07)
[2020-12-18] MEDS: AMLODIPINE 10MG TABLET PO SCH (09:00)
[2020-12-18] MEDS: DEXAMETHASONE 10 MG/ML VIAL IV SCH (09:40)
[2020-12-18] MEDS: CEFTRIAXONE 2 G in DEXTROSE 5% WATER 50 ML IV SCH (09:40)
[2020-12-18] MEDS: DOCUSATE SODIUM SUGAR FREE 100MG/10ML UDC NG SCH ×2 (09:40→17:00)
[2020-12-18] MEDS: ENOXAPARIN 40MG/0.4ML SYR SUBCUT SCH (09:41)
[2020-12-18 10:34] LABS: BG CARBOXYHEMOGLOBIN 0.3 % (0.5-1.5); BG DEOXYHEMOGLOBIN 1.2 % (0.0-5.0); BG FRACTION INSPIRED OXYGEN 100; BG HCO3 ACT 23.7 mmol/L (22.0-26.0); BG OXYGEN SATURATION 98.8 % (92.0-98.5); BG OXYHEMOGLOBIN 98.5 % (94.0-97.0); BG PCO2 44.7 mmHg (35.0-45.0); BG PH 7.343 (7.350-7.450); BG PO2 208.1 mmHg (75.0-100.0); BG SAMPLE SITE LEFT RADIAL; BG TOTAL HEMOGLOBIN 10.2 g/dL (12.0-18.0); BG TOTAL RESPIRATORY RATE 29 b/min; BG VENT MODE VENT - AC
[2020-12-18] MEDS: METHYLPREDNISOLONE SOD SUCC 40 MG/ML VIAL IV SCH ×2 (13:45→21:09)
[2020-12-18 14:47] LABS: PLATELET ESTIMATE NORMAL
[2020-12-18] MEDS: INSULIN GLARGINE UD 100 UNITS/ML SYR SUBCUT SCH (21:58)
[2020-12-19] VITALS (91 sets, daily range): BP systolic 97–154; BP diastolic 27–77
[2020-12-19] MEDS: METOCLOPRAMIDE HCL 10MG/2ML VIAL IV SCH ×5 (00:29→23:14)
[2020-12-19] MEDS: BLOOD SUGAR DIAGNOSTIC STRIP TEST SCH ×5 (00:30→23:12)
[2020-12-19] MEDS: INSULIN LISPRO 100 UNITS/ML SUBCUT SCH ×5 (00:32→23:12)
[2020-12-19] MEDS: IPRATROPIUM/ALBUTEROL 0.5-3(2.5)MG/3ML NEB HHN SCH ×6 (00:40→20:41)
[2020-12-19] MEDS: FENTANYL CITRATE/PF 2,500 MCG in SODIUM CHLORIDE 0.9% 200 ML IV PRN ×3 (02:05→17:15)
[2020-12-19] MEDS: METHYLPREDNISOLONE SOD SUCC 40 MG/ML VIAL IV SCH ×3 (05:16→23:13)
[2020-12-19] MEDS: MIDAZOLAM 100MG/100ML PMX 100 ML IV PRN ×2 (05:16→15:06)
[2020-12-19 05:34] LABS: CHLORIDE 114 mEq/L (98-107)
[2020-12-19 05:45] LABS: HEMATOCRIT. 30.7 % (42.0-52.0); HEMOGLOBIN. 9.7 g/dL (14.0-18.0); MEAN CORPUSCULAR HEMOGLOBIN 31.4 pg (28.0-32.0); MEAN CORPUSCULAR VOLUME 99.4 fL (80.0-94.0); MEAN PLATELET VOLUME 11.1 fl (7.4-10.4); PLATELET 214 x1000/uL (130-400); RED BLOOD CELL COUNT 3.09 mill/uL (4.7-6.1); RED CELL DISTRIBUTION WIDTH 13.7 % (11.6-14.6)
[2020-12-19 08:23] LABS: BG BASE EXCESS -3.1 mmol/L (-2.0-2.0); BG CARBOXYHEMOGLOBIN 0.3 % (0.5-1.5); BG DEOXYHEMOGLOBIN 4.9 % (0.0-5.0); BG OXYGEN SATURATION 95.1 % (92.0-98.5); BG OXYHEMOGLOBIN 94.8 % (94.0-97.0); BG PCO2 45.7 mmHg (35.0-45.0); BG PO2 82.2 mmHg (75.0-100.0); BG SAMPLE SITE RIGHT RADIAL; BG TOTAL HEMOGLOBIN 11.8 g/dL (12.0-18.0); BG VENT MODE VENT - AC
[2020-12-19] MEDS: DOCUSATE SODIUM SUGAR FREE 100MG/10ML UDC NG SCH ×2 (09:12→17:01)
[2020-12-19] MEDS: CEFTRIAXONE 2 G in DEXTROSE 5% WATER 50 ML IV SCH (09:12)
[2020-12-19] MEDS: AMLODIPINE 10MG TABLET PO SCH (09:12)
[2020-12-19] MEDS: ENOXAPARIN 40MG/0.4ML SYR SUBCUT SCH (09:13)
[2020-12-19] MEDS: INSULIN GLARGINE UD 100 UNITS/ML SYR SUBCUT SCH ×2 (09:37→23:12)
[2020-12-19 13:16] LABS: PLATELET ESTIMATE NORMAL
[2020-12-20] VITALS (95 sets, daily range): BP systolic 96–174; BP diastolic 50–87
[2020-12-20] MEDS: IPRATROPIUM/ALBUTEROL 0.5-3(2.5)MG/3ML NEB HHN SCH ×6 (00:23→21:03)
[2020-12-20] MEDS: FENTANYL CITRATE/PF 2,500 MCG in SODIUM CHLORIDE 0.9% 200 ML IV PRN ×4 (00:33→22:10)
[2020-12-20] MEDS: MIDAZOLAM 100MG/100ML PMX 100 ML IV PRN ×3 (02:26→23:49)
[2020-12-20] MEDS: METOCLOPRAMIDE HCL 10MG/2ML VIAL IV SCH ×4 (05:42→23:34)
[2020-12-20] MEDS: METHYLPREDNISOLONE SOD SUCC 40 MG/ML VIAL IV SCH ×3 (05:42→22:11)
[2020-12-20] MEDS: BLOOD SUGAR DIAGNOSTIC STRIP TEST SCH ×4 (05:42→23:34)
[2020-12-20] MEDS: INSULIN LISPRO 100 UNITS/ML SUBCUT SCH ×4 (05:45→23:35)
[2020-12-20 05:58] LABS: HEMATOCRIT. 32.9 % (42.0-52.0); HEMOGLOBIN. 10.6 g/dL (14.0-18.0); MEAN CORPUSCULAR HEMOGLOBIN 31.5 pg (28.0-32.0); MEAN CORPUSCULAR VOLUME 97.3 fL (80.0-94.0); PLATELET 235 x1000/uL (130-400); RED BLOOD CELL COUNT 3.38 mill/uL (4.7-6.1); RED CELL DISTRIBUTION WIDTH 13.1 % (11.6-14.6)
[2020-12-20 06:04] LABS: CHLORIDE 119 mEq/L (98-107)
[2020-12-20 08:42] LABS: BG BASE EXCESS -1.9 mmol/L (-2.0-2.0); BG DEOXYHEMOGLOBIN 3.4 % (0.0-5.0); BG HCO3 ACT 22.7 mmol/L (22.0-26.0); BG METHEMOGLOBIN 0.1 % (0.0-1.5); BG OXYGEN SATURATION 96.6 % (92.0-98.5); BG OXYHEMOGLOBIN 95.5 % (94.0-97.0); BG PCO2 38.3 mmHg (35.0-45.0); BG PH 7.391 (7.350-7.450); BG PO2 89.5 mmHg (75.0-100.0); BG SAMPLE SITE RIGHT RADIAL; BG TOTAL HEMOGLOBIN 13.3 g/dL (12.0-18.0); BG VENT MODE VENT - AC
[2020-12-20] MEDS: DOCUSATE SODIUM SUGAR FREE 100MG/10ML UDC NG SCH ×2 (09:08→17:00)
[2020-12-20] MEDS: ENOXAPARIN 40MG/0.4ML SYR SUBCUT SCH (09:09)
[2020-12-20] MEDS: AMLODIPINE 10MG TABLET PO SCH (09:09)
[2020-12-20] MEDS: INSULIN GLARGINE UD 100 UNITS/ML SYR SUBCUT SCH ×3 (09:10→22:00)
[2020-12-20 10:37] LABS: NUCLEATED RED BLOOD CELLS 1 /100 WBC; PLATELET ESTIMATE NORMAL
[2020-12-20] MEDS: PROPOFOL 10MG/ML 100ML 100 ML IV PRN ×2 (11:25→18:17)
[2020-12-20] MEDS: BISACODYL 10MG SUPP PR PRN (18:07)
[2020-12-21] VITALS (88 sets, daily range): BP systolic 91–166; BP diastolic 47–101
[2020-12-21] MEDS: PROPOFOL 10MG/ML 100ML 100 ML IV PRN ×4 (00:56→21:50)
[2020-12-21] MEDS: IPRATROPIUM/ALBUTEROL 0.5-3(2.5)MG/3ML NEB HHN SCH ×4 (02:32→21:04)
[2020-12-21] MEDS: FENTANYL CITRATE/PF 2,500 MCG in SODIUM CHLORIDE 0.9% 200 ML IV PRN ×3 (04:37→21:12)
[2020-12-21 05:55] LABS: HEMATOCRIT. 32.1 % (42.0-52.0); HEMOGLOBIN. 10.3 g/dL (14.0-18.0); MEAN CORPUSCULAR VOLUME 99.5 fL (80.0-94.0); MEAN PLATELET VOLUME 10.8 fl (7.4-10.4); PLATELET 184 x1000/uL (130-400); RED BLOOD CELL COUNT 3.23 mill/uL (4.7-6.1); RED CELL DISTRIBUTION WIDTH 13.4 % (11.6-14.6)
[2020-12-21] MEDS: METHYLPREDNISOLONE SOD SUCC 40 MG/ML VIAL IV SCH ×3 (06:00→22:00)
[2020-12-21] MEDS: INSULIN LISPRO 100 UNITS/ML SUBCUT SCH ×5 (06:00→23:35)
[2020-12-21] MEDS: METOCLOPRAMIDE HCL 10MG/2ML VIAL IV SCH ×4 (06:00→23:35)
[2020-12-21 06:08] LABS: CHLORIDE 117 mEq/L (98-107)
[2020-12-21 09:36] LABS: BG BASE EXCESS -3.4 mmol/L (-2.0-2.0); BG CARBOXYHEMOGLOBIN 0.5 % (0.5-1.5); BG DEOXYHEMOGLOBIN 3.4 % (0.0-5.0); BG FRACTION INSPIRED OXYGEN 80; BG HCO3 ACT 23.6 mmol/L (22.0-26.0); BG METHEMOGLOBIN 0.2 % (0.0-1.5); BG OXYGEN SATURATION 96.6 % (92.0-98.5); BG OXYHEMOGLOBIN 95.9 % (94.0-97.0); BG PCO2 51.7 mmHg (35.0-45.0); BG PH 7.277 (7.350-7.450); BG PO2 100.4 mmHg (75.0-100.0); BG SAMPLE SITE RIGHT RADIAL; BG TOTAL HEMOGLOBIN 10.7 g/dL (12.0-18.0); BG VENT MODE VENT - AC
[2020-12-21] MEDS: AMLODIPINE 10MG TABLET PO SCH (09:44)
[2020-12-21] MEDS: BLOOD SUGAR DIAGNOSTIC STRIP TEST SCH ×4 (09:45→23:35)
[2020-12-21] MEDS: ENOXAPARIN 40MG/0.4ML SYR SUBCUT SCH (09:45)
[2020-12-21] MEDS: DOCUSATE SODIUM SUGAR FREE 100MG/10ML UDC NG SCH ×2 (09:45→18:21)
[2020-12-21] MEDS: INSULIN GLARGINE UD 100 UNITS/ML SYR SUBCUT SCH ×2 (09:47→22:00)
[2020-12-21] MEDS: MIDAZOLAM 100MG/100ML PMX 100 ML IV PRN ×2 (11:34→21:11)
[2020-12-21 12:13] LABS: PLATELET ESTIMATE NORMAL
[2020-12-22] VITALS (95 sets, daily range): BP systolic 107–170; BP diastolic 52–81
[2020-12-22] MEDS: IPRATROPIUM/ALBUTEROL 0.5-3(2.5)MG/3ML NEB HHN SCH ×5 (03:20→21:05)
[2020-12-22] MEDS: PROPOFOL 10MG/ML 100ML 100 ML IV PRN ×3 (03:21→16:12)
[2020-12-22] MEDS: FENTANYL CITRATE/PF 2,500 MCG in SODIUM CHLORIDE 0.9% 200 ML IV PRN ×3 (04:48→20:10)
[2020-12-22 05:49] LABS: HEMOGLOBIN. 9.7 g/dL (14.0-18.0); MEAN CORPUSCULAR HEMOGLOBIN 33.1 pg (28.0-32.0); MEAN CORPUSCULAR VOLUME 99.2 fL (80.0-94.0); MEAN PLATELET VOLUME 10.9 fl (7.4-10.4); PLATELET 169 x1000/uL (130-400); RED BLOOD CELL COUNT 2.92 mill/uL (4.7-6.1); RED CELL DISTRIBUTION WIDTH 13.5 % (11.6-14.6)
[2020-12-22] MEDS: INSULIN LISPRO 100 UNITS/ML SUBCUT SCH ×4 (06:00→23:39)
[2020-12-22] MEDS: BLOOD SUGAR DIAGNOSTIC STRIP TEST SCH ×4 (06:10→23:39)
[2020-12-22] MEDS: METOCLOPRAMIDE HCL 10MG/2ML VIAL IV SCH ×4 (06:11→23:40)
[2020-12-22] MEDS: METHYLPREDNISOLONE SOD SUCC 40 MG/ML VIAL IV SCH ×3 (06:11→21:33)
[2020-12-22] MEDS: HYDRALAZINE 20MG/ML VIAL IV PRN (07:37)
[2020-12-22 08:15] LABS: CHLORIDE 117 mEq/L (98-107)
[2020-12-22 08:24] LABS: BG BASE EXCESS -0.8 mmol/L (-2.0-2.0); BG CARBOXYHEMOGLOBIN 0.8 % (0.5-1.5); BG DEOXYHEMOGLOBIN 13.7 % (0.0-5.0); BG HCO3 ACT 24.5 mmol/L (22.0-26.0); BG METHEMOGLOBIN 0.3 % (0.0-1.5); BG OXYGEN SATURATION 86.1 % (92.0-98.5); BG OXYHEMOGLOBIN 85.2 % (94.0-97.0); BG PCO2 42.6 mmHg (35.0-45.0); BG PH 7.377 (7.350-7.450); BG PO2 50.7 mmHg (75.0-100.0); BG SAMPLE SITE RIGHT RADIAL; BG TOTAL HEMOGLOBIN 11.8 g/dL (12.0-18.0); BG VENT MODE VENT - AC
[2020-12-22] MEDS: DOCUSATE SODIUM SUGAR FREE 100MG/10ML UDC NG SCH ×2 (08:46→18:24)
[2020-12-22] MEDS: ACETAMINOPHEN 325MG TABLET PO PRN (08:47)
[2020-12-22] MEDS: ENOXAPARIN 40MG/0.4ML SYR SUBCUT SCH (08:47)
[2020-12-22] MEDS: AMLODIPINE 10MG TABLET PO SCH (08:47)
[2020-12-22] MEDS: BISACODYL 10MG SUPP PR PRN (08:47)
[2020-12-22] MEDS: INSULIN GLARGINE UD 100 UNITS/ML SYR SUBCUT SCH (08:59)
[2020-12-22] MEDS: MIDAZOLAM 100MG/100ML PMX 100 ML IV PRN ×2 (09:05→19:30)
[2020-12-22] MEDS: PANTOPRAZOLE SODIUM 40 MG/VIAL IV SCH ×2 (13:58→18:24)
[2020-12-22 16:54] LABS: PLATELET ESTIMATE NORMAL
[2020-12-23] VITALS (92 sets, daily range): BP systolic 112–180; BP diastolic 52–85
[2020-12-23] MEDS: PROPOFOL 10MG/ML 100ML 100 ML IV PRN ×4 (00:40→20:24)
[2020-12-23] MEDS: IPRATROPIUM/ALBUTEROL 0.5-3(2.5)MG/3ML NEB HHN SCH ×6 (01:19→20:02)
[2020-12-23] MEDS: MIDAZOLAM 100MG/100ML PMX 100 ML IV PRN ×3 (05:00→20:31)
[2020-12-23] MEDS: FENTANYL CITRATE/PF 2,500 MCG in SODIUM CHLORIDE 0.9% 200 ML IV PRN ×2 (05:02→17:25)
[2020-12-23 05:43] LABS: HEMATOCRIT. 29.6 % (42.0-52.0); HEMOGLOBIN. 9.5 g/dL (14.0-18.0); MEAN CORPUSCULAR HEMOGLOBIN 31.4 pg (28.0-32.0); MEAN CORPUSCULAR VOLUME 97.9 fL (80.0-94.0); MEAN PLATELET VOLUME 11.2 fl (7.4-10.4); PLATELET 149 x1000/uL (130-400); RED BLOOD CELL COUNT 3.02 mill/uL (4.7-6.1); RED CELL DISTRIBUTION WIDTH 13.6 % (11.6-14.6)
[2020-12-23] MEDS: BLOOD SUGAR DIAGNOSTIC STRIP TEST SCH ×4 (05:47→23:25)
[2020-12-23] MEDS: INSULIN LISPRO 100 UNITS/ML SUBCUT SCH ×4 (05:47→23:56)
[2020-12-23] MEDS: METHYLPREDNISOLONE SOD SUCC 40 MG/ML VIAL IV SCH ×3 (05:48→21:09)
[2020-12-23] MEDS: METOCLOPRAMIDE HCL 10MG/2ML VIAL IV SCH ×4 (05:48→23:24)
[2020-12-23 05:51] LABS: CHLORIDE 115 mEq/L (98-107)
[2020-12-23] MEDS: HYDRALAZINE 20MG/ML VIAL IV PRN (07:35)
[2020-12-23] MEDS: ENOXAPARIN 40MG/0.4ML SYR SUBCUT SCH (09:00)
[2020-12-23] MEDS ORDERED: PANTOPRAZOLE SODIUM 40 MG/VIAL IV SCH (09:00)
[2020-12-23 09:23] LABS: PLATELET ESTIMATE NORMAL
[2020-12-23] MEDS: PANTOPRAZOLE SODIUM 40 MG/VIAL IV SCH ×2 (10:04→17:45)
[2020-12-23] MEDS: DOCUSATE SODIUM SUGAR FREE 100MG/10ML UDC NG SCH ×2 (10:04→17:44)
[2020-12-23] MEDS: AMLODIPINE 10MG TABLET PO SCH (10:05)
[2020-12-23 10:19] LABS: BG BASE EXCESS -1.9 mmol/L (-2.0-2.0); BG CARBOXYHEMOGLOBIN 0.3 % (0.5-1.5); BG DEOXYHEMOGLOBIN 7.9 % (0.0-5.0); BG FRACTION INSPIRED OXYGEN 100; BG HCO3 ACT 22.3 mmol/L (22.0-26.0); BG METHEMOGLOBIN 0.3 % (0.0-1.5); BG OXYGEN SATURATION 92.1 % (92.0-98.5); BG OXYHEMOGLOBIN 91.5 % (94.0-97.0); BG PCO2 36.3 mmHg (35.0-45.0); BG PH 7.407 (7.350-7.450); BG PO2 62.1 mmHg (75.0-100.0); BG SAMPLE SITE RIGHT RADIAL; BG TOTAL HEMOGLOBIN 11.4 g/dL (12.0-18.0); BG VENT MODE VENT - AC
[2020-12-23] MEDS: CEFEPIME 1,000 MG in DEXTROSE 5% WATER 50 ML IV SCH (15:24)
[2020-12-23 15:39] LABS: CLARITY URINE CLEAR (CLEAR); COLOR URINE ORANGE (YELLOW); KETONES URINE NEGATIVE (NEGATIVE); LEUKOCYTE ESTERASE URINE 1+ (NEGATIVE); NITRITE URINE NEGATIVE (NEGATIVE); OCCULT BLOOD URINE 3+ (NEGATIVE); PH URINE 5.5 (4.5-8.0); PROTEIN URINE TRACE (NEGATIVE); SPECIFIC GRAVITY URINE 1.018 (1.005-1.030)
[2020-12-24] VITALS (95 sets, daily range): BP systolic 106–162; BP diastolic 51–80
[2020-12-24] MEDS: CEFEPIME 1,000 MG in DEXTROSE 5% WATER 50 ML IV SCH ×3 (00:05→23:32)
[2020-12-24] MEDS: PROPOFOL 10MG/ML 100ML 100 ML IV PRN ×5 (00:36→17:24)
[2020-12-24] MEDS: FENTANYL CITRATE/PF 2,500 MCG in SODIUM CHLORIDE 0.9% 200 ML IV PRN ×4 (00:56→23:31)
[2020-12-24] MEDS: IPRATROPIUM/ALBUTEROL 0.5-3(2.5)MG/3ML NEB HHN SCH ×5 (02:12→20:29)
[2020-12-24] MEDS: MIDAZOLAM 100MG/100ML PMX 100 ML IV PRN ×4 (04:20→23:31)
[2020-12-24] MEDS: METOCLOPRAMIDE HCL 10MG/2ML VIAL IV SCH ×4 (05:10→23:23)
[2020-12-24] MEDS: METHYLPREDNISOLONE SOD SUCC 40 MG/ML VIAL IV SCH ×3 (05:10→21:11)
[2020-12-24] MEDS: BLOOD SUGAR DIAGNOSTIC STRIP TEST SCH ×4 (05:10→23:23)
[2020-12-24] MEDS: INSULIN LISPRO 100 UNITS/ML SUBCUT SCH ×4 (05:11→23:30)
[2020-12-24 05:23] LABS: HEMATOCRIT. 30.6 % (42.0-52.0); HEMOGLOBIN. 9.8 g/dL (14.0-18.0); MEAN CORPUSCULAR HEMOGLOBIN 31.8 pg (28.0-32.0); MEAN CORPUSCULAR VOLUME 99.2 fL (80.0-94.0); MEAN PLATELET VOLUME 11.5 fl (7.4-10.4); PLATELET 139 x1000/uL (130-400); RED BLOOD CELL COUNT 3.09 mill/uL (4.7-6.1); RED CELL DISTRIBUTION WIDTH 13.7 % (11.6-14.6)
[2020-12-24 05:26] LABS: CHLORIDE 113 mEq/L (98-107)
[2020-12-24] MEDS: ENOXAPARIN 40MG/0.4ML SYR SUBCUT SCH (08:29)
[2020-12-24] MEDS: DOCUSATE SODIUM SUGAR FREE 100MG/10ML UDC NG SCH ×2 (08:37→17:00)
[2020-12-24] MEDS: PANTOPRAZOLE SODIUM 40 MG/VIAL IV SCH ×2 (08:37→17:00)
[2020-12-24] MEDS: AMLODIPINE 10MG TABLET PO SCH (08:38)
[2020-12-24] MEDS: LACTULOSE 20G/30ML UDC PO PRN (08:38)
[2020-12-24 10:48] LABS: PLATELET ESTIMATE NORMAL
[2020-12-24 12:58] LABS: BG BASE EXCESS -2.4 mmol/L (-2.0-2.0); BG CARBOXYHEMOGLOBIN 0.6 % (0.5-1.5); BG DEOXYHEMOGLOBIN 13.5 % (0.0-5.0); BG FRACTION INSPIRED OXYGEN 80; BG HCO3 ACT 23.5 mmol/L (22.0-26.0); BG METHEMOGLOBIN 0.1 % (0.0-1.5); BG OXYGEN SATURATION 86.4 % (92.0-98.5); BG OXYHEMOGLOBIN 85.8 % (94.0-97.0); BG PCO2 44.9 mmHg (35.0-45.0); BG PH 7.336 (7.350-7.450); BG PO2 54.3 mmHg (75.0-100.0); BG SAMPLE SITE RIGHT RADIAL; BG TOTAL HEMOGLOBIN 10.3 g/dL (12.0-18.0); BG VENT MODE VENT - P/C
[2020-12-25] VITALS (92 sets, daily range): BP systolic 98–166; BP diastolic 40–94
[2020-12-25] MEDS: IPRATROPIUM/ALBUTEROL 0.5-3(2.5)MG/3ML NEB HHN SCH ×6 (00:13→21:12)
[2020-12-25] MEDS: PROPOFOL 10MG/ML 100ML 100 ML IV PRN ×6 (00:15→23:41)
[2020-12-25] MEDS: INSULIN LISPRO 100 UNITS/ML SUBCUT SCH ×3 (05:18→18:14)
[2020-12-25] MEDS: BLOOD SUGAR DIAGNOSTIC STRIP TEST SCH ×3 (05:18→17:12)
[2020-12-25] MEDS: METHYLPREDNISOLONE SOD SUCC 40 MG/ML VIAL IV SCH ×3 (05:18→22:41)
[2020-12-25] MEDS: METOCLOPRAMIDE HCL 10MG/2ML VIAL IV SCH ×3 (05:18→18:07)
[2020-12-25 05:37] LABS: HEMATOCRIT. 30.9 % (42.0-52.0); HEMOGLOBIN. 10.2 g/dL (14.0-18.0); MEAN CORPUSCULAR HEMOGLOBIN 31.8 pg (28.0-32.0); MEAN CORPUSCULAR VOLUME 96.5 fL (80.0-94.0); MEAN PLATELET VOLUME 10.6 fl (7.4-10.4); PLATELET 151 x1000/uL (130-400)
[2020-12-25 05:41] LABS: CHLORIDE 111 mEq/L (98-107)
[2020-12-25] MEDS: FENTANYL CITRATE/PF 2,500 MCG in SODIUM CHLORIDE 0.9% 200 ML IV PRN ×3 (06:23→21:45)
[2020-12-25] MEDS: MIDAZOLAM 100MG/100ML PMX 100 ML IV PRN ×3 (06:26→21:18)
[2020-12-25] MEDS: ENOXAPARIN 40MG/0.4ML SYR SUBCUT SCH ×2 (09:00→10:19)
[2020-12-25 09:03] LABS: BG BASE EXCESS -3.4 mmol/L (-2.0-2.0); BG DEOXYHEMOGLOBIN 13.4 % (0.0-5.0); BG FRACTION INSPIRED OXYGEN 100; BG HCO3 ACT 22.1 mmol/L (22.0-26.0); BG METHEMOGLOBIN 0.1 % (0.0-1.5); BG OXYGEN SATURATION 86.5 % (92.0-98.5); BG OXYHEMOGLOBIN 85.5 % (94.0-97.0); BG PCO2 41.2 mmHg (35.0-45.0); BG PH 7.347 (7.350-7.450); BG PO2 52.1 mmHg (75.0-100.0); BG SAMPLE SITE RIGHT RADIAL; BG TOTAL HEMOGLOBIN 13.2 g/dL (12.0-18.0); BG TOTAL RESPIRATORY RATE 48 b/min; BG VENT MODE VENT - P/C
[2020-12-25] MEDS: PANTOPRAZOLE SODIUM 40 MG/VIAL IV SCH ×2 (09:36→18:06)
[2020-12-25] MEDS: AMLODIPINE 10MG TABLET PO SCH (09:36)
[2020-12-25] MEDS: DOCUSATE SODIUM SUGAR FREE 100MG/10ML UDC NG SCH ×2 (09:36→18:07)
[2020-12-25 09:53] LABS: PLATELET ESTIMATE NORMAL
[2020-12-25] MEDS: CEFEPIME 1,000 MG in DEXTROSE 5% WATER 50 ML IV SCH (12:39)
[2020-12-26] VITALS (95 sets, daily range): BP systolic 90–125; BP diastolic 40–72
[2020-12-26] MEDS: IPRATROPIUM/ALBUTEROL 0.5-3(2.5)MG/3ML NEB HHN SCH ×6 (00:19→20:28)
[2020-12-26] MEDS: METOCLOPRAMIDE HCL 10MG/2ML VIAL IV SCH ×4 (01:27→17:27)
[2020-12-26] MEDS: INSULIN LISPRO 100 UNITS/ML SUBCUT SCH ×4 (01:28→17:32)
[2020-12-26] MEDS: CEFEPIME 1,000 MG in DEXTROSE 5% WATER 50 ML IV SCH ×2 (01:30→11:46)
[2020-12-26 05:52] LABS: HEMATOCRIT. 28.6 % (42.0-52.0); HEMOGLOBIN. 9.5 g/dL (14.0-18.0); MEAN CORPUSCULAR HEMOGLOBIN 32.7 pg (28.0-32.0); MEAN PLATELET VOLUME 10.2 fl (7.4-10.4); PLATELET 119 x1000/uL (130-400); RED BLOOD CELL COUNT 2.92 mill/uL (4.7-6.1); RED CELL DISTRIBUTION WIDTH 13.3 % (11.6-14.6)
[2020-12-26] MEDS: FENTANYL CITRATE/PF 2,500 MCG in SODIUM CHLORIDE 0.9% 200 ML IV PRN ×3 (05:58→19:00)
[2020-12-26] MEDS: METHYLPREDNISOLONE SOD SUCC 40 MG/ML VIAL IV SCH ×3 (05:58→21:57)
[2020-12-26] MEDS: MIDAZOLAM 100MG/100ML PMX 100 ML IV PRN ×3 (05:59→18:08)
[2020-12-26] MEDS: PROPOFOL 10MG/ML 100ML 100 ML IV PRN ×4 (06:03→20:53)
[2020-12-26 06:06] LABS: CHLORIDE 110 mEq/L (98-107)
[2020-12-26] MEDS: BLOOD SUGAR DIAGNOSTIC STRIP TEST SCH ×4 (06:07→17:29)
[2020-12-26] MEDS: AMLODIPINE 10MG TABLET PO SCH (09:06)
[2020-12-26] MEDS: DOCUSATE SODIUM SUGAR FREE 100MG/10ML UDC NG SCH ×2 (09:06→17:26)
[2020-12-26] MEDS: PANTOPRAZOLE SODIUM 40 MG/VIAL IV SCH ×2 (09:06→17:27)
[2020-12-26] MEDS: ENOXAPARIN 40MG/0.4ML SYR SUBCUT SCH (09:23)
[2020-12-26 10:46] LABS: BG BASE EXCESS -4.2 mmol/L (-2.0-2.0); BG CARBOXYHEMOGLOBIN 0.4 % (0.5-1.5); BG DEOXYHEMOGLOBIN 1.5 % (0.0-5.0); BG FRACTION INSPIRED OXYGEN 100; BG HCO3 ACT 24.3 mmol/L (22.0-26.0); BG METHEMOGLOBIN 0.3 % (0.0-1.5); BG OXYGEN SATURATION 98.5 % (92.0-98.5); BG OXYHEMOGLOBIN 97.8 % (94.0-97.0); BG PCO2 63.7 mmHg (35.0-45.0); BG PH 7.199 (7.350-7.450); BG PO2 140.7 mmHg (75.0-100.0); BG SAMPLE SITE RIGHT RADIAL; BG VENT MODE VENT - P/C
[2020-12-26] MEDS ORDERED: SODIUM BICARBONATE 8.4% 1 MEQ/ML 50ML SYR IV NR ×2 (11:15→16:30)
[2020-12-26 13:29] LABS: BG BASE EXCESS -3.1 mmol/L (-2.0-2.0); BG CARBOXYHEMOGLOBIN 0.2 % (0.5-1.5); BG FRACTION INSPIRED OXYGEN 90; BG HCO3 ACT 27.6 mmol/L (22.0-26.0); BG METHEMOGLOBIN 0.5 % (0.0-1.5); BG OXYHEMOGLOBIN 96.3 % (94.0-97.0); BG PCO2 87.5 mmHg (35.0-45.0); BG PH 7.117 (7.350-7.450); BG PO2 109.6 mmHg (75.0-100.0); BG SAMPLE SITE RIGHT RADIAL; BG TOTAL HEMOGLOBIN 10.5 g/dL (12.0-18.0); BG TOTAL RESPIRATORY RATE 43 b/min; BG VENT MODE VENT - P/C
[2020-12-26 15:48] LABS: PLATELET ESTIMATE SLIGHTLY DECREASED
[2020-12-26 16:06] LABS: BG BASE EXCESS -5.4 mmol/L (-2.0-2.0); BG CARBOXYHEMOGLOBIN 0.6 % (0.5-1.5); BG DEOXYHEMOGLOBIN 7.2 % (0.0-5.0); BG FRACTION INSPIRED OXYGEN 90; BG HCO3 ACT 23.3 mmol/L (22.0-26.0); BG METHEMOGLOBIN 0.4 % (0.0-1.5); BG OXYGEN SATURATION 92.7 % (92.0-98.5); BG OXYHEMOGLOBIN 91.8 % (94.0-97.0); BG PCO2 63.9 mmHg (35.0-45.0); BG PO2 71.2 mmHg (75.0-100.0); BG SAMPLE SITE LEFT RADIAL; BG TOTAL HEMOGLOBIN 9.7 g/dL (12.0-18.0); BG TOTAL RESPIRATORY RATE 40 b/min; BG VENT MODE VENT - AC
[2020-12-27] VITALS (96 sets, daily range): BP systolic 90–132; BP diastolic 40–64
[2020-12-27] MEDS: BLOOD SUGAR DIAGNOSTIC STRIP TEST SCH ×5 (00:05→23:49)
[2020-12-27] MEDS: CEFEPIME 1,000 MG in DEXTROSE 5% WATER 50 ML IV SCH ×2 (00:09→12:03)
[2020-12-27] MEDS: INSULIN LISPRO 100 UNITS/ML SUBCUT SCH ×4 (00:10→17:17)
[2020-12-27] MEDS: METOCLOPRAMIDE HCL 10MG/2ML VIAL IV SCH ×4 (00:12→17:14)
[2020-12-27] MEDS: IPRATROPIUM/ALBUTEROL 0.5-3(2.5)MG/3ML NEB HHN SCH ×6 (00:13→20:22)
[2020-12-27] MEDS: MIDAZOLAM 100MG/100ML PMX 100 ML IV PRN ×4 (02:30→20:40)
[2020-12-27] MEDS: PROPOFOL 10MG/ML 100ML 100 ML IV PRN ×5 (02:30→20:39)
[2020-12-27] MEDS: FENTANYL CITRATE/PF 2,500 MCG in SODIUM CHLORIDE 0.9% 200 ML IV PRN ×3 (02:51→17:57)
[2020-12-27 05:40] LABS: HEMOGLOBIN. 8.6 g/dL (14.0-18.0); MEAN CORPUSCULAR HEMOGLOBIN 32.2 pg (28.0-32.0); MEAN CORPUSCULAR VOLUME 97.2 fL (80.0-94.0); MEAN PLATELET VOLUME 10.6 fl (7.4-10.4); PLATELET 137 x1000/uL (130-400); RED BLOOD CELL COUNT 2.68 mill/uL (4.7-6.1); RED CELL DISTRIBUTION WIDTH 13.3 % (11.6-14.6)
[2020-12-27 05:48] LABS: CHLORIDE 111 mEq/L (98-107)
[2020-12-27] MEDS: METHYLPREDNISOLONE SOD SUCC 40 MG/ML VIAL IV SCH ×3 (06:27→21:17)
[2020-12-27] MEDS: ENOXAPARIN 40MG/0.4ML SYR SUBCUT SCH (08:14)
[2020-12-27] MEDS: PANTOPRAZOLE SODIUM 40 MG/VIAL IV SCH ×2 (08:14→17:14)
[2020-12-27] MEDS: DOCUSATE SODIUM SUGAR FREE 100MG/10ML UDC NG SCH ×2 (08:14→17:14)
[2020-12-27] MEDS: AMLODIPINE 10MG TABLET PO SCH (08:14)
[2020-12-27 10:19] LABS: BG BASE EXCESS -0.5 mmol/L (-2.0-2.0); BG CARBOXYHEMOGLOBIN 0.1 % (0.5-1.5); BG DEOXYHEMOGLOBIN 9.3 % (0.0-5.0); BG FRACTION INSPIRED OXYGEN 90; BG METHEMOGLOBIN 0.1 % (0.0-1.5); BG OXYGEN SATURATION 90.7 % (92.0-98.5); BG OXYHEMOGLOBIN 90.5 % (94.0-97.0); BG PCO2 51.6 mmHg (35.0-45.0); BG PO2 60.8 mmHg (75.0-100.0); BG SAMPLE SITE RIGHT RADIAL; BG TOTAL HEMOGLOBIN 10.1 g/dL (12.0-18.0); BG VENT MODE VENT - AC
[2020-12-27] MEDS ORDERED: INSULIN GLARGINE UD 100 UNITS/ML SYR SUBCUT NR (11:15)
[2020-12-27 13:02] LABS: PLATELET ESTIMATE NORMAL
[2020-12-27] MEDS: INSULIN GLARGINE UD 100 UNITS/ML SYR SUBCUT SCH (21:18)
[2020-12-28] VITALS (71 sets, daily range): BP systolic 112–159; BP diastolic 52–70
[2020-12-28] MEDS: METOCLOPRAMIDE HCL 10MG/2ML VIAL IV SCH ×5 (00:02→23:11)
[2020-12-28] MEDS: INSULIN LISPRO 100 UNITS/ML SUBCUT SCH ×5 (00:02→23:13)
[2020-12-28] MEDS: CEFEPIME 1,000 MG in DEXTROSE 5% WATER 50 ML IV SCH ×2 (00:03→13:04)
[2020-12-28] MEDS: PROPOFOL 10MG/ML 100ML 100 ML IV PRN ×5 (01:26→23:00)
[2020-12-28] MEDS: FENTANYL CITRATE/PF 2,500 MCG in SODIUM CHLORIDE 0.9% 200 ML IV PRN ×4 (01:27→23:12)
[2020-12-28] MEDS: IPRATROPIUM/ALBUTEROL 0.5-3(2.5)MG/3ML NEB HHN SCH ×5 (02:18→20:23)
[2020-12-28 03:13] LABS: BG BASE EXCESS 1.2 mmol/L (-2.0-2.0); BG CARBOXYHEMOGLOBIN 0.2 % (0.5-1.5); BG DEOXYHEMOGLOBIN 13.4 % (0.0-5.0); BG FRACTION INSPIRED OXYGEN 100; BG HCO3 ACT 27.2 mmol/L (22.0-26.0); BG METHEMOGLOBIN 0.3 % (0.0-1.5); BG OXYGEN SATURATION 86.5 % (92.0-98.5); BG OXYHEMOGLOBIN 86.1 % (94.0-97.0); BG PCO2 50.2 mmHg (35.0-45.0); BG PH 7.352 (7.350-7.450); BG PO2 51.6 mmHg (75.0-100.0); BG SAMPLE SITE RIGHT RADIAL; BG TOTAL HEMOGLOBIN 10.2 g/dL (12.0-18.0); BG VENT MODE VENT - AC
[2020-12-28] MEDS: MIDAZOLAM 100MG/100ML PMX 100 ML IV PRN ×3 (03:45→16:41)
[2020-12-28] MEDS: BLOOD SUGAR DIAGNOSTIC STRIP TEST SCH ×4 (05:39→23:13)
[2020-12-28] MEDS: METHYLPREDNISOLONE SOD SUCC 40 MG/ML VIAL IV SCH ×3 (06:04→23:11)
[2020-12-28 06:11] LABS: CHLORIDE 113 mEq/L (98-107)
[2020-12-28 06:14] LABS: HEMATOCRIT. 27.7 % (42.0-52.0); HEMOGLOBIN. 9.3 g/dL (14.0-18.0); MEAN CORPUSCULAR HEMOGLOBIN 32.8 pg (28.0-32.0); MEAN CORPUSCULAR VOLUME 97.5 fL (80.0-94.0); MEAN PLATELET VOLUME 10.4 fl (7.4-10.4); PLATELET 177 x1000/uL (130-400); RED BLOOD CELL COUNT 2.84 mill/uL (4.7-6.1); RED CELL DISTRIBUTION WIDTH 13.6 % (11.6-14.6)
[2020-12-28] MEDS ORDERED: CALCIUM GLUCONATE 100MG/ML 10ML VIAL IV ONE (07:00)
[2020-12-28 08:11] LABS: PLATELET ESTIMATE NORMAL
[2020-12-28] MEDS: AMLODIPINE 10MG TABLET PO SCH (09:00)
[2020-12-28] MEDS: PANTOPRAZOLE SODIUM 40 MG/VIAL IV SCH ×2 (09:41→16:40)
[2020-12-28] MEDS: DOCUSATE SODIUM SUGAR FREE 100MG/10ML UDC NG SCH ×2 (09:41→16:54)
[2020-12-28] MEDS: ENOXAPARIN 40MG/0.4ML SYR SUBCUT SCH (09:49)
[2020-12-28] MEDS: INSULIN GLARGINE UD 100 UNITS/ML SYR SUBCUT SCH ×2 (09:51→23:13)
[2020-12-28 10:00] LABS: BG BASE EXCESS -0.1 mmol/L (-2.0-2.0); BG CARBOXYHEMOGLOBIN 1.1 % (0.5-1.5); BG DEOXYHEMOGLOBIN 1.4 % (0.0-5.0); BG FRACTION INSPIRED OXYGEN 100; BG HCO3 ACT 26.5 mmol/L (22.0-26.0); BG METHEMOGLOBIN 0.3 % (0.0-1.5); BG OXYGEN SATURATION 98.6 % (92.0-98.5); BG OXYHEMOGLOBIN 97.2 % (94.0-97.0); BG PCO2 53.2 mmHg (35.0-45.0); BG PH 7.315 (7.350-7.450); BG PO2 144.7 mmHg (75.0-100.0); BG SAMPLE SITE RIGHT RADIAL; BG TOTAL HEMOGLOBIN 9.5 g/dL (12.0-18.0); BG VENT MODE VENT - AC
[2020-12-29] VITALS (67 sets, daily range): BP systolic 84–200; BP diastolic 44–100
[2020-12-29] MEDS: IPRATROPIUM/ALBUTEROL 0.5-3(2.5)MG/3ML NEB HHN SCH ×6 (00:36→20:09)
[2020-12-29] MEDS: MIDAZOLAM 100MG/100ML PMX 100 ML IV PRN ×4 (01:15→20:23)
[2020-12-29] MEDS: PROPOFOL 10MG/ML 100ML 100 ML IV PRN ×5 (03:26→20:27)
[2020-12-29] MEDS: FENTANYL CITRATE/PF 2,500 MCG in SODIUM CHLORIDE 0.9% 200 ML IV PRN ×3 (05:50→20:24)
[2020-12-29] MEDS: METOCLOPRAMIDE HCL 10MG/2ML VIAL IV SCH ×4 (05:50→23:26)
[2020-12-29] MEDS: METHYLPREDNISOLONE SOD SUCC 40 MG/ML VIAL IV SCH ×2 (05:50→17:34)
[2020-12-29 05:56] LABS: CHLORIDE 112 mEq/L (98-107)
[2020-12-29] MEDS: BLOOD SUGAR DIAGNOSTIC STRIP TEST SCH ×4 (05:57→23:26)
[2020-12-29] MEDS: INSULIN LISPRO 100 UNITS/ML SUBCUT SCH ×4 (05:58→23:26)
[2020-12-29 06:58] LABS: HEMOGLOBIN. 10.2 g/dL (14.0-18.0); MEAN CORPUSCULAR HEMOGLOBIN 32.3 pg (28.0-32.0); MEAN CORPUSCULAR VOLUME 97.7 fL (80.0-94.0); MEAN PLATELET VOLUME 10.4 fl (7.4-10.4); PLATELET 174 x1000/uL (130-400); RED BLOOD CELL COUNT 3.17 mill/uL (4.7-6.1); RED CELL DISTRIBUTION WIDTH 13.3 % (11.6-14.6)
[2020-12-29 08:58] LABS: BG BASE EXCESS -0.8 mmol/L (-2.0-2.0); BG CARBOXYHEMOGLOBIN 0.7 % (0.5-1.5); BG DEOXYHEMOGLOBIN 3.1 % (0.0-5.0); BG FRACTION INSPIRED OXYGEN 100; BG HCO3 ACT 25.9 mmol/L (22.0-26.0); BG METHEMOGLOBIN 0.3 % (0.0-1.5); BG OXYGEN SATURATION 96.9 % (92.0-98.5); BG OXYHEMOGLOBIN 95.9 % (94.0-97.0); BG PCO2 52.5 mmHg (35.0-45.0); BG PH 7.311 (7.350-7.450); BG PO2 90.9 mmHg (75.0-100.0); BG SAMPLE SITE LEFT RADIAL; BG TOTAL HEMOGLOBIN 10.5 g/dL (12.0-18.0); BG TOTAL RESPIRATORY RATE 40 b/min; BG VENT MODE VENT - AC
[2020-12-29] MEDS: ENOXAPARIN 40MG/0.4ML SYR SUBCUT SCH (09:00)
[2020-12-29] MEDS: DOCUSATE SODIUM SUGAR FREE 100MG/10ML UDC NG SCH ×2 (09:05→17:34)
[2020-12-29] MEDS: AMLODIPINE 10MG TABLET PO SCH (09:05)
[2020-12-29] MEDS: PANTOPRAZOLE SODIUM 40 MG/VIAL IV SCH ×2 (09:05→17:34)
[2020-12-29] MEDS: HYDRALAZINE 20MG/ML VIAL IV PRN (09:08)
[2020-12-29] MEDS: INSULIN GLARGINE UD 100 UNITS/ML SYR SUBCUT SCH ×2 (09:12→20:22)
[2020-12-29 10:05] LABS: PLATELET ESTIMATE NORMAL
[2020-12-29] MEDS: ACETAMINOPHEN 325MG TABLET PO PRN (14:26)
[2020-12-29] MEDS: LACTULOSE 20G/30ML UDC PO PRN (17:34)
[2020-12-29] MEDS: BISACODYL 10MG SUPP PR PRN (17:34)
[2020-12-29] MEDS: MIDAZOLAM HCL 100 MG in SODIUM CHLORIDE 0.9% 100 ML IV PRN (22:30)
[2020-12-30] VITALS (96 sets, daily range): BP systolic 82–157; BP diastolic 40–119
[2020-12-30] MEDS: PROPOFOL 10MG/ML 100ML 100 ML IV PRN ×5 (00:55→21:44)
[2020-12-30] MEDS: IPRATROPIUM/ALBUTEROL 0.5-3(2.5)MG/3ML NEB HHN SCH ×5 (01:07→21:54)
[2020-12-30] MEDS: MIDAZOLAM HCL 100 MG in SODIUM CHLORIDE 0.9% 100 ML IV PRN ×3 (01:58→21:48)
[2020-12-30] MEDS: FENTANYL CITRATE/PF 2,500 MCG in SODIUM CHLORIDE 0.9% 200 ML IV PRN ×2 (02:49→22:41)
[2020-12-30] MEDS: METOCLOPRAMIDE HCL 10MG/2ML VIAL IV SCH ×4 (05:40→23:18)
[2020-12-30] MEDS: INSULIN LISPRO 100 UNITS/ML SUBCUT SCH ×4 (05:40→23:50)
[2020-12-30] MEDS: METHYLPREDNISOLONE SOD SUCC 40 MG/ML VIAL IV SCH ×2 (05:40→18:45)
[2020-12-30] MEDS: BLOOD SUGAR DIAGNOSTIC STRIP TEST SCH ×4 (05:40→23:17)
[2020-12-30] MEDS: ENOXAPARIN 40MG/0.4ML SYR SUBCUT SCH (09:00)
[2020-12-30] MEDS: DOCUSATE SODIUM SUGAR FREE 100MG/10ML UDC NG SCH ×2 (09:00→16:49)
[2020-12-30] MEDS: AMLODIPINE 10MG TABLET PO SCH (09:00)
[2020-12-30] MEDS: PANTOPRAZOLE SODIUM 40 MG/VIAL IV SCH ×2 (09:00→16:49)
[2020-12-30 09:22] LABS: BG CARBOXYHEMOGLOBIN 0.4 % (0.5-1.5); BG DEOXYHEMOGLOBIN 4.2 % (0.0-5.0); BG FRACTION INSPIRED OXYGEN 100; BG HCO3 ACT 25.3 mmol/L (22.0-26.0); BG METHEMOGLOBIN 0.2 % (0.0-1.5); BG OXYGEN SATURATION 95.8 % (92.0-98.5); BG OXYHEMOGLOBIN 95.2 % (94.0-97.0); BG PCO2 55.8 mmHg (35.0-45.0); BG PH 7.275 (7.350-7.450); BG PO2 86.1 mmHg (75.0-100.0); BG SAMPLE SITE RIGHT RADIAL; BG TOTAL HEMOGLOBIN 10.5 g/dL (12.0-18.0); BG VENT MODE VENT - AC
[2020-12-30] MEDS: INSULIN GLARGINE UD 100 UNITS/ML SYR SUBCUT SCH ×2 (10:00→21:52)
[2020-12-31] VITALS (90 sets, daily range): BP systolic 96–157; BP diastolic 47–92
[2020-12-31] MEDS: IPRATROPIUM/ALBUTEROL 0.5-3(2.5)MG/3ML NEB HHN SCH ×6 (01:02→20:25)
[2020-12-31] MEDS: PROPOFOL 10MG/ML 100ML 100 ML IV PRN ×5 (01:42→23:50)
[2020-12-31] MEDS: BLOOD SUGAR DIAGNOSTIC STRIP TEST SCH ×4 (05:27→23:43)
[2020-12-31] MEDS: METOCLOPRAMIDE HCL 10MG/2ML VIAL IV SCH ×4 (05:28→23:43)
[2020-12-31] MEDS: METHYLPREDNISOLONE SOD SUCC 40 MG/ML VIAL IV SCH ×2 (05:28→18:54)
[2020-12-31] MEDS: INSULIN LISPRO 100 UNITS/ML SUBCUT SCH ×4 (05:29→23:43)
[2020-12-31 05:45] LABS: CHLORIDE 111 mEq/L (98-107)
[2020-12-31 06:08] LABS: HEMATOCRIT. 30.7 % (42.0-52.0); HEMOGLOBIN. 9.8 g/dL (14.0-18.0); MEAN CORPUSCULAR HEMOGLOBIN 31.6 pg (28.0-32.0); MEAN CORPUSCULAR VOLUME 98.6 fL (80.0-94.0); MEAN PLATELET VOLUME 10.6 fl (7.4-10.4); PLATELET 184 x1000/uL (130-400); RED BLOOD CELL COUNT 3.11 mill/uL (4.7-6.1); RED CELL DISTRIBUTION WIDTH 14.2 % (11.6-14.6)
[2020-12-31] MEDS: AMLODIPINE 10MG TABLET PO SCH (09:00)
[2020-12-31] MEDS: DOCUSATE SODIUM SUGAR FREE 100MG/10ML UDC NG SCH ×2 (09:36→17:00)
[2020-12-31] MEDS: PANTOPRAZOLE SODIUM 40 MG/VIAL IV SCH ×2 (09:36→17:00)
[2020-12-31] MEDS: ENOXAPARIN 40MG/0.4ML SYR SUBCUT SCH (09:37)
[2020-12-31] MEDS: INSULIN GLARGINE UD 100 UNITS/ML SYR SUBCUT SCH ×2 (09:37→22:00)
[2020-12-31] MEDS: FENTANYL CITRATE/PF 2,500 MCG in SODIUM CHLORIDE 0.9% 200 ML IV PRN ×2 (11:04→18:38)
[2020-12-31 12:26] LABS: BG BASE EXCESS -1.5 mmol/L (-2.0-2.0); BG CARBOXYHEMOGLOBIN 0.2 % (0.5-1.5); BG FRACTION INSPIRED OXYGEN 100; BG HCO3 ACT 26.3 mmol/L (22.0-26.0); BG METHEMOGLOBIN 0.2 % (0.0-1.5); BG OXYHEMOGLOBIN 97.6 % (94.0-97.0); BG PCO2 60.3 mmHg (35.0-45.0); BG PH 7.258 (7.350-7.450); BG PO2 131.1 mmHg (75.0-100.0); BG SAMPLE SITE RIGHT RADIAL; BG VENT MODE VENT - AC
[2020-12-31 13:44] LABS: PLATELET ESTIMATE NORMAL
[2020-12-31] MEDS: MIDAZOLAM HCL 100 MG in SODIUM CHLORIDE 0.9% 100 ML IV PRN (18:35)
[2020-12-31] MEDS: ACETAMINOPHEN 325MG TABLET PO PRN (20:48)
[2020-12-31] MEDS: DEXTROSE 50% WATER 50ML SYRINGE IV PRN (22:14)
[2021-01-01] VITALS (98 sets, daily range): BP systolic 87–150; BP diastolic 43–103
[2021-01-01] MEDS: IPRATROPIUM/ALBUTEROL 0.5-3(2.5)MG/3ML NEB HHN SCH ×6 (00:24→20:24)
[2021-01-01] MEDS: METHYLPREDNISOLONE SOD SUCC 40 MG/ML VIAL IV SCH ×2 (05:06→18:10)
[2021-01-01] MEDS: INSULIN LISPRO 100 UNITS/ML SUBCUT SCH ×4 (05:06→23:41)
[2021-01-01] MEDS: METOCLOPRAMIDE HCL 10MG/2ML VIAL IV SCH ×4 (05:06→23:40)
[2021-01-01] MEDS: BLOOD SUGAR DIAGNOSTIC STRIP TEST SCH ×4 (05:06→23:37)
[2021-01-01] MEDS: PROPOFOL 10MG/ML 100ML 100 ML IV PRN ×4 (05:35→18:25)
[2021-01-01] MEDS: FENTANYL CITRATE/PF 2,500 MCG in SODIUM CHLORIDE 0.9% 200 ML IV PRN ×2 (05:50→15:40)
[2021-01-01] MEDS: MIDAZOLAM HCL 100 MG in SODIUM CHLORIDE 0.9% 100 ML IV PRN ×3 (05:51→23:40)
[2021-01-01 06:02] LABS: CHLORIDE 112 mEq/L (98-107)
[2021-01-01 06:05] LABS: HEMATOCRIT. 31.6 % (42.0-52.0); HEMOGLOBIN. 10.2 g/dL (14.0-18.0); MEAN CORPUSCULAR HEMOGLOBIN 31.9 pg (28.0-32.0); MEAN CORPUSCULAR VOLUME 99.2 fL (80.0-94.0); PLATELET 193 x1000/uL (130-400); RED BLOOD CELL COUNT 3.19 mill/uL (4.7-6.1); RED CELL DISTRIBUTION WIDTH 14.6 % (11.6-14.6)
[2021-01-01] MEDS: PANTOPRAZOLE SODIUM 40 MG/VIAL IV SCH ×2 (08:18→18:10)
[2021-01-01] MEDS: ENOXAPARIN 40MG/0.4ML SYR SUBCUT SCH (08:19)
[2021-01-01] MEDS: AMLODIPINE 10MG TABLET PO SCH (08:21)
[2021-01-01] MEDS: DOCUSATE SODIUM SUGAR FREE 100MG/10ML UDC NG SCH ×2 (09:12→18:23)
[2021-01-01 09:53] LABS: BG BASE EXCESS -1.4 mmol/L (-2.0-2.0); BG CARBOXYHEMOGLOBIN 0.5 % (0.5-1.5); BG DEOXYHEMOGLOBIN 4.2 % (0.0-5.0); BG FRACTION INSPIRED OXYGEN 100; BG HCO3 ACT 27.4 mmol/L (22.0-26.0); BG METHEMOGLOBIN 0.3 % (0.0-1.5); BG OXYGEN SATURATION 95.8 % (92.0-98.5); BG PCO2 69.4 mmHg (35.0-45.0); BG PH 7.215 (7.350-7.450); BG PO2 87.3 mmHg (75.0-100.0); BG SAMPLE SITE RIGHT RADIAL; BG TOTAL HEMOGLOBIN 10.9 g/dL (12.0-18.0); BG VENT MODE VENT - AC
[2021-01-01] MEDS: INSULIN GLARGINE UD 100 UNITS/ML SYR SUBCUT SCH ×2 (10:00→21:22)
[2021-01-01 13:53] LABS: PLATELET ESTIMATE NORMAL
[2021-01-02] VITALS (98 sets, daily range): BP systolic 94–213; BP diastolic 43–91
[2021-01-02] MEDS: IPRATROPIUM/ALBUTEROL 0.5-3(2.5)MG/3ML NEB HHN SCH ×6 (00:27→20:49)
[2021-01-02] MEDS: ACETAMINOPHEN 325MG TABLET PO PRN (00:45)
[2021-01-02] MEDS: PROPOFOL 10MG/ML 100ML 100 ML IV PRN ×4 (01:16→18:53)
[2021-01-02] MEDS: FENTANYL CITRATE/PF 2,500 MCG in SODIUM CHLORIDE 0.9% 200 ML IV PRN ×2 (03:51→12:57)
[2021-01-02] MEDS: METHYLPREDNISOLONE SOD SUCC 40 MG/ML VIAL IV SCH ×2 (05:50→17:56)
[2021-01-02] MEDS: METOCLOPRAMIDE HCL 10MG/2ML VIAL IV SCH ×4 (05:50→23:59)
[2021-01-02] MEDS: BLOOD SUGAR DIAGNOSTIC STRIP TEST SCH ×4 (05:50→23:58)
[2021-01-02] MEDS: INSULIN LISPRO 100 UNITS/ML SUBCUT SCH ×4 (06:01→23:58)
[2021-01-02 07:12] LABS: HEMATOCRIT. 28.4 % (42.0-52.0); HEMOGLOBIN. 9.4 g/dL (14.0-18.0); MEAN CORPUSCULAR HEMOGLOBIN 32.2 pg (28.0-32.0); MEAN CORPUSCULAR VOLUME 97.1 fL (80.0-94.0); MEAN PLATELET VOLUME 9.8 fl (7.4-10.4); PLATELET 189 x1000/uL (130-400); RED BLOOD CELL COUNT 2.92 mill/uL (4.7-6.1); RED CELL DISTRIBUTION WIDTH 13.7 % (11.6-14.6)
[2021-01-02 07:29] LABS: CHLORIDE 112 mEq/L (98-107)
[2021-01-02] MEDS: ENOXAPARIN 40MG/0.4ML SYR SUBCUT SCH (08:54)
[2021-01-02] MEDS: AMLODIPINE 10MG TABLET PO SCH (09:00)
[2021-01-02] MEDS: DOCUSATE SODIUM SUGAR FREE 100MG/10ML UDC NG SCH ×2 (09:00→17:56)
[2021-01-02 09:27] LABS: BG BASE EXCESS 0.6 mmol/L (-2.0-2.0); BG CARBOXYHEMOGLOBIN 0.3 % (0.5-1.5); BG DEOXYHEMOGLOBIN 2.5 % (0.0-5.0); BG HCO3 ACT 27.9 mmol/L (22.0-26.0); BG METHEMOGLOBIN 0.1 % (0.0-1.5); BG OXYGEN SATURATION 97.5 % (92.0-98.5); BG OXYHEMOGLOBIN 97.1 % (94.0-97.0); BG PCO2 59.7 mmHg (35.0-45.0); BG PH 7.288 (7.350-7.450); BG PO2 106.5 mmHg (75.0-100.0); BG SAMPLE SITE RIGHT RADIAL; BG TOTAL HEMOGLOBIN 9.6 g/dL (12.0-18.0); BG VENT MODE VENT - AC
[2021-01-02] MEDS: PANTOPRAZOLE SODIUM 40 MG/VIAL IV SCH ×2 (09:30→17:56)
[2021-01-02] MEDS: MIDAZOLAM HCL 100 MG in SODIUM CHLORIDE 0.9% 100 ML IV PRN ×2 (09:30→18:54)
[2021-01-02] MEDS: INSULIN GLARGINE UD 100 UNITS/ML SYR SUBCUT SCH ×2 (09:39→21:50)
[2021-01-02] MEDS ORDERED: FUROSEMIDE 40MG/4ML VIAL IVP NR (16:15)
[2021-01-02] MEDS: CLONIDINE 0.1MG TABLET PO PRN (17:56)
[2021-01-02] MEDS: LACTULOSE 20G/30ML UDC PO PRN (17:56)
[2021-01-02] MEDS ORDERED: MIDAZOLAM 100MG/100ML PMX 100 ML IV PRN (20:00)
[2021-01-02] MEDS: HYDRALAZINE HCL 100MG TABLET PO SCH (21:47)
[2021-01-02 23:22] LABS: PLATELET ESTIMATE NORMAL
[2021-01-03] VITALS (94 sets, daily range): BP systolic 90–222; BP diastolic 46–93
[2021-01-03] MEDS: FENTANYL CITRATE/PF 2,500 MCG in SODIUM CHLORIDE 0.9% 200 ML IV PRN ×4 (00:09→23:35)
[2021-01-03] MEDS: IPRATROPIUM/ALBUTEROL 0.5-3(2.5)MG/3ML NEB HHN SCH ×5 (00:55→16:14)
[2021-01-03] MEDS: PROPOFOL 10MG/ML 100ML 100 ML IV PRN ×5 (01:09→23:18)
[2021-01-03 05:23] LABS: HEMATOCRIT. 25.6 % (42.0-52.0); HEMOGLOBIN. 8.4 g/dL (14.0-18.0); MEAN CORPUSCULAR HEMOGLOBIN 31.9 pg (28.0-32.0); MEAN CORPUSCULAR VOLUME 97.4 fL (80.0-94.0); PLATELET 180 x1000/uL (130-400); RED BLOOD CELL COUNT 2.63 mill/uL (4.7-6.1); RED CELL DISTRIBUTION WIDTH 13.8 % (11.6-14.6)
[2021-01-03 05:35] LABS: CHLORIDE 112 mEq/L (98-107)
[2021-01-03] MEDS: METOCLOPRAMIDE HCL 10MG/2ML VIAL IV SCH ×4 (05:51→23:30)
[2021-01-03] MEDS: INSULIN LISPRO 100 UNITS/ML SUBCUT SCH ×2 (06:00→11:58)
[2021-01-03] MEDS: BLOOD SUGAR DIAGNOSTIC STRIP TEST SCH (06:00)
[2021-01-03] MEDS: METHYLPREDNISOLONE SOD SUCC 40 MG/ML VIAL IV SCH ×2 (06:18→17:42)
[2021-01-03] MEDS: HYDRALAZINE HCL 100MG TABLET PO SCH ×3 (06:33→22:41)
[2021-01-03] MEDS: AMLODIPINE 10MG TABLET PO SCH (08:23)
[2021-01-03 08:24] LABS: BG BASE EXCESS 0.9 mmol/L (-2.0-2.0); BG CARBOXYHEMOGLOBIN 0.3 % (0.5-1.5); BG DEOXYHEMOGLOBIN 8.6 % (0.0-5.0); BG FRACTION INSPIRED OXYGEN 100; BG HCO3 ACT 26.1 mmol/L (22.0-26.0); BG METHEMOGLOBIN 0.3 % (0.0-1.5); BG OXYGEN SATURATION 91.3 % (92.0-98.5); BG OXYHEMOGLOBIN 90.8 % (94.0-97.0); BG PCO2 44.3 mmHg (35.0-45.0); BG PH 7.388 (7.350-7.450); BG PO2 57.8 mmHg (75.0-100.0); BG SAMPLE SITE RIGHT RADIAL; BG TOTAL HEMOGLOBIN 9.9 g/dL (12.0-18.0); BG VENT MODE VENT - AC
[2021-01-03] MEDS: DOCUSATE SODIUM SUGAR FREE 100MG/10ML UDC NG SCH ×2 (08:24→17:42)
[2021-01-03] MEDS: CLONIDINE 0.1MG TABLET PO PRN (08:24)
[2021-01-03] MEDS: PANTOPRAZOLE SODIUM 40 MG/VIAL IV SCH ×2 (08:24→17:42)
[2021-01-03] MEDS: ACETAMINOPHEN 325MG TABLET PO PRN (08:24)
[2021-01-03] MEDS: ENOXAPARIN 40MG/0.4ML SYR SUBCUT SCH (08:24)
[2021-01-03] MEDS: MIDAZOLAM HCL 100 MG in SODIUM CHLORIDE 0.9% 100 ML IV PRN ×3 (08:59→16:30)
[2021-01-03] MEDS: INSULIN GLARGINE UD 100 UNITS/ML SYR SUBCUT SCH ×2 (11:00→22:00)
[2021-01-03] MEDS: HYDRALAZINE 20MG/ML VIAL IV PRN (11:52)
[2021-01-03] MEDS ORDERED: CLONIDINE 0.2MG TABLET PO PRN (12:30)
[2021-01-03] MEDS ORDERED: ACETAMINOPHEN 650MG/20.3ML UDC PO PRN (12:30)
[2021-01-03 14:05] LABS: PLATELET ESTIMATE NORMAL
[2021-01-03] MEDS ORDERED: METF-874 PO (15:24)
[2021-01-03] MEDS ORDERED: GABA-532 PO (15:24)
[2021-01-03] MEDS: CEFEPIME 1,000 MG in DEXTROSE 5% WATER 50 ML IV SCH (20:42)
[2021-01-03] MEDS ORDERED: PROPOFOL 10MG/ML 100ML 100 ML IV PRN (22:45)
[2021-01-04] VITALS (66 sets, daily range): BP systolic 77–138; BP diastolic 44–78
[2021-01-04] MEDS: METOCLOPRAMIDE HCL 10MG/2ML VIAL IV SCH ×3 (06:08→17:03)
[2021-01-04] MEDS: PROPOFOL 10MG/ML 100ML 100 ML IV PRN (06:12)
[2021-01-04] MEDS: METHYLPREDNISOLONE SOD SUCC 40 MG/ML VIAL IV SCH ×2 (06:12→17:03)
[2021-01-04] MEDS: HYDRALAZINE HCL 100MG TABLET PO SCH ×2 (06:13→13:54)
[2021-01-04 06:20] LABS: HEMATOCRIT. 28.5 % (42.0-52.0); HEMOGLOBIN. 9.1 g/dL (14.0-18.0); MEAN CORPUSCULAR HEMOGLOBIN 31.3 pg (28.0-32.0); MEAN PLATELET VOLUME 9.7 fl (7.4-10.4); PLATELET 205 x1000/uL (130-400); RED BLOOD CELL COUNT 2.91 mill/uL (4.7-6.1); RED CELL DISTRIBUTION WIDTH 14.2 % (11.6-14.6)
[2021-01-04] MEDS: IPRATROPIUM/ALBUTEROL 0.5-3(2.5)MG/3ML NEB HHN SCH ×2 (07:54→16:09)
[2021-01-04] MEDS: ENOXAPARIN 40MG/0.4ML SYR SUBCUT SCH (08:39)
[2021-01-04] MEDS: PANTOPRAZOLE SODIUM 40 MG/VIAL IV SCH ×2 (08:39→17:03)
[2021-01-04] MEDS: DOCUSATE SODIUM SUGAR FREE 100MG/10ML UDC NG SCH ×2 (08:39→17:03)
[2021-01-04] MEDS: AMLODIPINE 10MG TABLET PO SCH (08:59)
[2021-01-04 09:04] LABS: BG BASE EXCESS -3.1 mmol/L (-2.0-2.0); BG CARBOXYHEMOGLOBIN 0.8 % (0.5-1.5); BG DEOXYHEMOGLOBIN 11.2 % (0.0-5.0); BG FRACTION INSPIRED OXYGEN 100; BG HCO3 ACT 24.1 mmol/L (22.0-26.0); BG METHEMOGLOBIN 0.1 % (0.0-1.5); BG OXYGEN SATURATION 88.7 % (92.0-98.5); BG OXYHEMOGLOBIN 87.9 % (94.0-97.0); BG PCO2 54.4 mmHg (35.0-45.0); BG PH 7.265 (7.350-7.450); BG PO2 57.4 mmHg (75.0-100.0); BG SAMPLE SITE RIGHT RADIAL; BG TOTAL HEMOGLOBIN 10.1 g/dL (12.0-18.0); BG VENT MODE VENT - AC
[2021-01-04] MEDS: FENTANYL CITRATE/PF 2,500 MCG in SODIUM CHLORIDE 0.9% 200 ML IV PRN ×2 (09:50→16:06)
[2021-01-04] MEDS: CEFEPIME 1,000 MG in DEXTROSE 5% WATER 50 ML IV SCH (09:53)
[2021-01-04] MEDS: INSULIN GLARGINE UD 100 UNITS/ML SYR SUBCUT SCH (09:54)
[2021-01-04 11:54] LABS: PLATELET ESTIMATE NORMAL
[2021-01-04 12:19] LABS: CHLORIDE 111 mEq/L (98-107)
[2021-01-04] MEDS ORDERED: EPINEPHRINE 10 MG in SODIUM CHLORIDE 0.9% 240 ML IV PRN (17:15)
[2021-01-04] MEDS ORDERED: NOREPINEPHRINE 32 MG in DEXT 5% WATER 218 ML IV PRN (17:15)
== END 2021-01-04 17:40 | disposition expired | DRG 720 ==
LOC: ER 21:52 → MICUSO 12-06 00:37 → EDBEDREQDT 12-06 00:39 → EDBEDREQTM 12-06 00:39 → EDBEDREQ 12-06 00:39 → EDBEDREQSVC 12-06 00:39 → CVICU 12-07 20:23 → MICUSO 12-14 16:30 → 5EST 12-29 12:08 → CVICU 01-03 17:09
PROVIDERS: ADMIT Internal Medicine; ATTEND Internal Medicine
PROC: 5A09357 Assistance with Respiratory Ventilation, Less than 24 Consecutive Hours, Continuous Positive Airway Pressure (ICD-10-PCS; 2020-12-05)
PROC: 5A1955Z Respiratory Ventilation, Greater than 96 Consecutive Hours (ICD-10-PCS; principal; 2020-12-06)
PROC: 02HV33Z Insertion of Infusion Device into Superior Vena Cava, Percutaneous Approach (ICD-10-PCS; 2020-12-06)
PROC: B548ZZA Ultrasonography of Superior Vena Cava, Guidance (ICD-10-PCS; 2020-12-06)
PROC: 5A09357 Assistance with Respiratory Ventilation, Less than 24 Consecutive Hours, Continuous Positive Airway Pressure (ICD-10-PCS; 2020-12-06)
PROC: 0BH17EZ Insertion of Endotracheal Airway into Trachea, Via Natural or Artificial Opening (ICD-10-PCS; 2020-12-06)
PROC: 0BP1XDZ Removal of Intraluminal Device from Trachea, External Approach (ICD-10-PCS; 2020-12-19)
PROC: 0BH17EZ Insertion of Endotracheal Airway into Trachea, Via Natural or Artificial Opening (ICD-10-PCS; 2020-12-19)
DX: A41.89 Other specified sepsis (principal); J12.82 Pneumonia due to coronavirus disease 2019; J96.01 Acute respiratory failure with hypoxia; I10 Essential (primary) hypertension; E87.5 Hyperkalemia; E87.1 Hypo-osmolality and hyponatremia; N17.0 Acute kidney failure with tubular necrosis; E44.0 Moderate protein-calorie malnutrition; R65.20 Severe sepsis without septic shock; U07.1 COVID-19; F17.200 Nicotine dependence, unspecified, uncomplicated; J44.0 Chronic obstructive pulmonary disease with (acute) lower respiratory infection; E11.10 Type 2 diabetes mellitus with ketoacidosis without coma; E11.65 Type 2 diabetes mellitus with hyperglycemia; L89.626 Pressure-induced deep tissue damage of left heel; L89.616 Pressure-induced deep tissue damage of right heel; L89.896 Pressure-induced deep tissue damage of other site; Z66 Do not resuscitate; E86.1 Hypovolemia; E87.0 Hyperosmolality and hypernatremia; G93.41 Metabolic encephalopathy; E87.4 Mixed disorder of acid-base balance; Z68.30 Body mass index [BMI] 30.0-30.9, adult; Z78.1 Physical restraint status
CPT/HCPCS: 31500; 36415; 36600; 71045; 76937; 80048; 80053; 80202; 81003; 82010; 82040; 82375; 82550; 82728; 82805; 82962; 83036; 83605; 83615; 84134; 84145; 84478; 84484; 85025; 85379; 85384; 86140; 87070; 87077; 87186; 87426; 87635; 93005; 94002; 94003; 94640; 94660; 99291; C1725; C9113; J0360; J0456; J0610; J0692; J0696; J1100; J1650; J1815; J1940; J2060; J2250; J2370; J2543; J2704; J2765; J2920; J3010; J3370; J3490; J7030; J7040; J7050; J7060; J7070; A4315